=== PATIENT | female | born 1970 | race Caucasian/White ===

== ENCOUNTER 2021-01-03 07:41 | Outpatient (REF) | payer OTHER, SELFPAY | END 2021-01-03 07:42 | disposition home or self-care (01) | LOC: HO.LAB 07:41 | PROVIDERS: Visit Provider Internal Medicine | DX: Z20.822 Contact with and (suspected) exposure to COVID-19 (principal) | CPT/HCPCS: C9803; U0003; U0005 ==

== ENCOUNTER 2021-03-27 09:56 | Emergency (ER) | payer OTHER, SELFPAY ==
--- NOTE | ~2021-03-27 | XR_ITS ---
EXAMINATION: 1. Radiographs left shoulder 2. Radiographs left hand/wrist CLINICAL INFORMATION: Pain COMPARISON: Left shoulder x-ray October 01, 2017 and left hand/wrist x-ray May 08, 2014 TECHNIQUE: 3 views of the left shoulder and 4 views of the left hand/wrist were obtained. FINDINGS: Left shoulder: Visualized portion of the proximal left humerus demonstrate no fracture. Humeral head is again noted to be somewhat inferior in relation to the glenoid. The acromioclavicular joint demonstrates mild degenerative changes. Appreciable interval worsening in calcification adjacent to the greater tuberosity. Visualized left-sided ribs and lung parenchyma are unremarkable. Left hand/wrist: Visualized portions of the distal radius and ulna demonstrate no fracture. Similar metallic foreign body within the soft tissues of the distal forearm. Carpal rows are well aligned. No carpal, metacarpal or phalangeal fracture. No significant degenerative changes of the left hand. XR/XR hand wrist LT IMPRESSION: 1. Worsening calcific tendinosis of the left shoulder. 2. Similar appearance of suspected inferior subluxation of the humeral head in relation to the glenoid fossa. Clinical correlation recommended. This may be positional in nature. 3. Unremarkable radiographs of the left hand/wrist.
--- NOTE | ~2021-03-27 | XR_ITS ---
EXAMINATION: 1. Radiographs left shoulder 2. Radiographs left hand/wrist CLINICAL INFORMATION: Pain COMPARISON: Left shoulder x-ray October 01, 2017 and left hand/wrist x-ray May 08, 2014 TECHNIQUE: 3 views of the left shoulder and 4 views of the left hand/wrist were obtained. FINDINGS: Left shoulder: Visualized portion of the proximal left humerus demonstrate no fracture. Humeral head is again noted to be somewhat inferior in relation to the glenoid. The acromioclavicular joint demonstrates mild degenerative changes. Appreciable interval worsening in calcification adjacent to the greater tuberosity. Visualized left-sided ribs and lung parenchyma are unremarkable. Left hand/wrist: Visualized portions of the distal radius and ulna demonstrate no fracture. Similar metallic foreign body within the soft tissues of the distal forearm. Carpal rows are well aligned. No carpal, metacarpal or phalangeal fracture. No significant degenerative changes of the left hand. XR/XR shoulder LT min 2V IMPRESSION: 1. Worsening calcific tendinosis of the left shoulder. 2. Similar appearance of suspected inferior subluxation of the humeral head in relation to the glenoid fossa. Clinical correlation recommended. This may be positional in nature. 3. Unremarkable radiographs of the left hand/wrist.
--- NOTE | ~2021-03-27 | XR_ITS ---
EXAMINATION: XR knee LT 4V CLINICAL INFORMATION: Reason for Exam LEFT knee pain COMPARISON: None available at the time of this dictation. TECHNIQUE: frontal, lateral, tunnel views FINDINGS: BONES: No fracture or dislocation is present. JOINTS: Narrowing of joint spaces and developed osteophytes from the edges of articular surfaces suggest degenerative osteoarthritis. SOFT TISSUE: Normal XR/XR knee LT 4V IMPRESSION: Mild DJD especially medial compartments. No joint effusion.
--- NOTE | ~2021-03-27 | US_ITS ---
EXAMINATION: US VENOUS WITH DOPPLER UPPER EXTREMITY, LEFT CLINICAL INFORMATION: Pain COMPARISON: None TECHNIQUE: Ultrasound of the upper extremity is performed using compression sonography and color and pulse Doppler flow with assessment of augmentation of flow. There is also imaging and Doppler assessment of the jugular and subclavian veins. Spectral analysis with color-flow imaging is performed. FINDINGS: Respiratory variation, normal compression, and augmented flow are noted throughout the upper extremity including the axillary, brachial, cubital, and radial and ulnar veins. There is normal flow in the internal jugular and subclavian veins. There is no visible deep or superficial thrombophlebitis. If the patient's symptoms progress, a followup ultrasound in 5 -7 days might be of value to exclude proximal propagation from a nonvisualized distal arm vein. US/US venous duplex UE LT IMPRESSION: No DVT demonstrated in the left upper extremity.
[2021-03-27 11:03] VITALS: BP 129/78; PULSE 66; RESP 16; O2SAT 100; BMI 38.7
--- NOTE | 2021-03-27 11:52 | ED.EXTPRO ---
HPI - Extremity Problem General Chief complaint: Extremity Problem Stated complaint: Extremity Pain Time Seen by Provider: 03/27/21 11:06 Source: patient Mode of arrival: ambulatory Limitations: no limitations History of Present Illness HPI Narrative: Patient presents to ED for left hand pain radiating up to her shoulder since yesterday. Patient states pain when moving fingers. Patient denies any weakness in extremity, any slurred speech, loss of vision, paralysis of any extremities or facial droop. Patient denies any swelling of hand redness. Patient denies any recent trauma chest pain or shortness of breath. Patient's 2nd complaint is left knee pain for the past 3 weeks. Related Data Previous Rx's Medication Instructions Recorded ketorolac 10 mg tablet 10 mg PO QID PRN 5 Days #20 tab 03/27/21 prednisone 20 mg tablet 60 mg PO DAILY 5 Days #15 tab 03/27/21 Allergies Allergy/AdvReac Type Severity Reaction Status Date / Time hydromorphone [From DILAUDID] Allergy Severe DIFFICULTY Unverified 05/06/20 15:09 BREATHING Review of Systems Review of Systems: Yes all other systems are reviewed and are negative Constitutional: Constitutional: Reports as per HPI and Reports no additional constitutional complaints Eyes: Eyes: Reports as per HPI and Reports no additional eye complaints ENT: Reports system reviewed and no additional complaints, except as documented and Reports as per HPI Cardiovascular: Cardiovascular: Reports as per HPI and Reports no additional cardiovascular complaints Respiratory: Respiratory: Reports as per HPI and Reports no additional respiratory complaints Gastrointestinal: Gastrointestinal: Reports as per HPI and Reports no additional gastrointestinal complaints Genitourinary: Genitourinary: Reports no additional female genitourinary complaints and Reports as per HPI Musculoskeletal: Musculoskeletal: Reports no additional musculoskeletal complaints and Reports as per HPI Comments: Left hand pain and left knee pain. Neurologic: Reports system reviewed and no additional complaints, except as documented and Reports as per HPI Psychiatric: Psychiatric: Reports no additional psychiatric complaints and Reports as per HPI [facility] Social History Social History Advance Directives: No Advance Directives Information Provided: No Physical Exam Vital Signs: Vital Signs: Last Vital Signs Pulse 62 03/27/21 14:43 Resp 20 03/27/21 14:43 BP 127/71 03/27/21 14:43 Pulse Ox 100 03/27/21 14:43 Body Mass Index 38.7 Const: General: cooperative, healthy appearing, comfortable, no acute distress, well developed, alert, awake and Physically active Orientation/consciousness: patient oriented x3 HENMT: Head: Yes normal to inspection, Yes No palpable skull fracture present, Yes normocephalic, Yes atraumatic and No abrasion Eyes: General: appearance normal, both eyes and all related structures Neck: Neck: Yes normal visual inspection, Yes full ROM, Yes no lymphadenopathy, Yes no meningeal signs, Yes trachea midline and No tender Chest: Chest palpation & inspection: normal inspection of the chest and normal palpation of entire chest wall Resp: Effort & Inspection: normal respiratory effort and able to speak in complete sentences Auscultation: clear to auscultation bilaterally Cardio: Jugular venous distension: no JVD Heart sounds: S1 normal heart sound present and S2 normal heart sound present GI: Inspection: Yes normal to inspection and No abdominal wall ecchymosis Palpation (GI): Soft to palpation, not firm, nontender and no guarding : General: No CVA tenderness and Yes no CVA tenderness Back/Spine/Pelvis: Back: no CVA tenderness, No CVA tenderness and No back tenderness Skin: General skin exam: no rashes or lesions noted and elasticity normal Neuro: Other: Negative for facial droop. Negative slurred speech. Negative negative pronator drift. General: patient oriented x3, gait normal, no meningeal signs and CN's II-XI intact bilaterally Cranial nerves: Yes CN's II-XII intact bilaterally Extrem: Hand/finger images: 1. All fingers painful on range of motion. Tenderness on palpation. Negative for any redness, swelling, pus discharge, foul odor, or deformity. Vascular neuro exam is intact. Motor exam limited due to pain. Negative ecchymosis. Knee images: 1. Positive for bone tenderness. Negative for erythema, redness, swelling, or stiffness. Motor/neuro/vascular exam is intact. Psych: Appearance: grossly normal, well kempt and not disheveled Course Course Course Narrative: Due to age will do EKG and at least 1 troponin. Sent for x-rays of hand and shoulder. Negative for any obvious deformity. Negative for any warmth to indicates cellulitis. Negative for coldness to indicate arterial occlusion. Reevaluation(s) Reevaluation #1: EKG negative STEMI. Shoulder x-ray positive for tendinitis. Knee x-rays positive for osteoarthritis. Hand x-ray came back normal. Waiting for troponin CPK per was sent for ultrasound to rule out DVT. Time: 12:14 Reevaluation #2: Patient's ultrasound negative for DVT. Patient is presently having referred pain from shoulder to tendinitis. Will be discharged with Toradol and steroids. After patient received Toradol IM nursing patient started moving her hand left upper extremity. Time: 14:26 MDM - Extremity (Nontraumatic) MDM Narrative Medical decision making narrative: Calcific tendinitis Lab Data Result diagrams: 03/27/21 11:48 03/27/21 11:48 Labs: Lab Results 03/27/21 03/27/21 03/27/21 Range/Units 11:48 11:48 11:48 WBC 6.2 (4.8-10.8) X10*3/uL RBC 4.49 (4.20-5.50) X10*6/uL Hgb 12.4 (12.0-16.0) g/dl Hct 38.4 (37-47) % MCV 85.5 (80-98) fL MCH 27.6 (27.0-33.0) pg MCHC 32.3 (31.0-35.0) g/dl RDW 13.4 (11.0-16.0) % Plt Count 257 (160-400) X10*3/uL MPV 10.6 (9.4-12.3) fL Immature Gran % (Auto) 0.2 (0.0-0.4) % Neut % (Auto) 60.5 (45-73) % Lymph % (Auto) 28.4 (20-40) % [place] % (Auto) 7.4 (2-11) % Eos % (Auto) 2.9 (0-4) % Baso % (Auto) 0.6 (0-2) % Lymph # (Auto) 1.8 (1.2-4.9) X10*3/uL [place] # (Auto) 0.5 (0.1-1.2) X10*3/uL Eos # (Auto) 0.2 (0.0-0.4) X10*3/uL Baso # (Auto) 0.0 (0.0-0.2) X10*3/uL Abs Immat Gran (auto) 0.01 (0.00-0.03) X10*3/uL Absolute Neuts (auto) 3.7 (2.0-8.3) X10*3/uL Absolute Nucleated RBC 0.000 (0.0-0.012) X10*3/uL Nucleated RBC % (auto) 0.0 (0.0-0.2) /100WBC PT (9.9-13.0) SEC INR (0.9-1.1) APTT (24.1-38.0) SEC Sodium 140 (135-145) mmol/L Potassium 4.2 (3.3-5.1) mmol/L Chloride 108 (96-108) mmol/L Carbon Dioxide 25 (22-29) mmol/L Anion Gap 11 L (12-20) BUN 9 (9-16) mg/dL Creatinine 0.69 (0.5-1.4) mg/dL Estim Creat Clear Calc 120.4 Estimated GFR > 60 Random Glucose 87 (60-115) mg/dL Calcium 8.7 (8.4-10.2) mg/dL Total Bilirubin 0.6 (0.0-1.0) mg/dL AST 12 (5-31) U/L ALT 10 (0-31) U/L Alkaline Phosphatase 49 (39-117) U/L Total Creatine Kinase (26-140) U/L Troponin I High Sens < 3.5 (<3.5-17.0) ng/L Total Protein 6.9 (6.5-8.0) g/dL Albumin 3.9 (3.5-5.0) g/dL 03/27/21 03/27/21 Range/Units 11:48 11:48 WBC (4.8-10.8) X10*3/uL RBC (4.20-5.50) X10*6/uL Hgb (12.0-16.0) g/dl Hct (37-47) % MCV (80-98) fL MCH (27.0-33.0) pg MCHC (31.0-35.0) g/dl RDW (11.0-16.0) % Plt Count (160-400) X10*3/uL MPV (9.4-12.3) fL Immature Gran % (Auto) (0.0-0.4) % Neut % (Auto) (45-73) % Lymph % (Auto) (20-40) % [place] % (Auto) (2-11) % Eos % (Auto) (0-4) % Baso % (Auto) (0-2) % Lymph # (Auto) (1.2-4.9) X10*3/uL [place] # (Auto) (0.1-1.2) X10*3/uL Eos # (Auto) (0.0-0.4) X10*3/uL Baso # (Auto) (0.0-0.2) X10*3/uL Abs Immat Gran (auto) (0.00-0.03) X10*3/uL Absolute Neuts (auto) (2.0-8.3) X10*3/uL Absolute Nucleated RBC (0.0-0.012) X10*3/uL Nucleated RBC % (auto) (0.0-0.2) /100WBC PT 11.3 (9.9-13.0) SEC INR 1.0 (0.9-1.1) APTT 34.3 (24.1-38.0) SEC Sodium (135-145) mmol/L Potassium (3.3-5.1) mmol/L Chloride (96-108) mmol/L Carbon Dioxide (22-29) mmol/L Anion Gap (12-20) BUN (9-16) mg/dL Creatinine (0.5-1.4) mg/dL Estim Creat Clear Calc Estimated GFR Random Glucose (60-115) mg/dL Calcium (8.4-10.2) mg/dL Total Bilirubin (0.0-1.0) mg/dL AST (5-31) U/L ALT (0-31) U/L Alkaline Phosphatase (39-117) U/L Total Creatine Kinase 77 (26-140) U/L Troponin I High Sens (<3.5-17.0) ng/L Total Protein (6.5-8.0) g/dL Albumin (3.5-5.0) g/dL Discharge Plan Discharge Clinical Impression: Calcific shoulder tendinitis Patient Disposition: Home, Self-Care Instructions: Calcific Tendinitis (ED) Additional Instructions: Shoulder shows calcific tendinitis on x-ray. EKG and blood work troponin came back negative for heart attack. Left hand x-ray came back normal. Left upper extremity ultrasound negative for blood clot. You will be discharged with pain medication steroids please follow-up with your PCP Prescriptions: New ketorolac 10 mg tablet 10 mg PO QID PRN (Reason: pain) 5 Days Qty: 20 RF: 0 prednisone 20 mg tablet 60 mg PO DAILY 5 Days Qty: 15 RF: 0 Interventions: ED Discharge Assessment Last Done: 03/27/21 14:46 Discharge Date/Time: 03/27/21 14:47 Print Language: Azeri
[2021-03-27 11:53] LABS: MANUAL DIFF FLAG NO
[2021-03-27 11:55] LABS: Basophils Percent Auto 0.6 % (0-2); Eosinophils Absolute Auto 0.2 X10*3/uL (0.0-0.4); Eosinophils Percent Auto 2.9 % (0-4); Hematocrit 38.4 % (37-47); Hemoglobin 12.4 g/dl (12.0-16.0); Imm Gran Abs Auto 0.01 X10*3/uL (0.00-0.03); Imm Gran Pct Auto 0.2 % (0.0-0.4); Lymphocytes Absolute Auto 1.8 X10*3/uL (1.2-4.9); Lymphocytes Percent Auto 28.4 % (20-40); Mean Corpuscular HGB Conc 32.3 g/dl (31.0-35.0); Mean Corpuscular Hemoglobin 27.6 pg (27.0-33.0); Mean Corpuscular Volume 85.5 fL (80-98); Mean Platelet Volume 10.6 fL (9.4-12.3); Monocytes Absolute Auto 0.5 X10*3/uL (0.1-1.2); Monocytes Percent Auto 7.4 % (2-11); Neutrophils Absolute Auto 3.7 X10*3/uL (2.0-8.3); Neutrophils Percent Auto 60.5 % (45-73); Platelet Count 257 X10*3/uL (160-400); Red Blood Count 4.49 X10*6/uL (4.20-5.50); Red Cell Distribution Width 13.4 % (11.0-16.0); White Blood Count 6.2 X10*3/uL (4.8-10.8)
[2021-03-27 12:10] LABS: Prothrombin Time 11.3 SEC (9.9-13.0)
[2021-03-27 12:13] LABS: Partial Thromboplastin Time 34.3 SEC (24.1-38.0)
[2021-03-27 12:25] LABS: Alanine Aminotransferase 10 U/L (0-31); Albumin Level 3.9 g/dL (3.5-5.0); Alkaline Phosphatase 49 U/L (39-117); Anion Gap 11 (12-20); Aspartate Amino Transferase 12 U/L (5-31); Bilirubin Total 0.6 mg/dL (0.0-1.0); Blood Urea Nitrogen 9 mg/dL (9-16); Calcium 8.7 mg/dL (8.4-10.2); Carbon Dioxide 25 mmol/L (22-29); Chloride 108 mmol/L (96-108); Creatinine Clr Calc Pharmacy 120.4; Estimated Glomerular Filt Rate > 60; Glucose Random 87 mg/dL (60-115); Potassium 4.2 mmol/L (3.3-5.1); Sodium 140 mmol/L (135-145); Total Protein 6.9 g/dL (6.5-8.0)
[2021-03-27 12:29] LABS: Troponin-I High Sensitivity < 3.5 ng/L (<3.5-17.0)
[2021-03-27] MEDS: Ketorolac Tromethamine 15 MG/ML VIAL 30 MG IM (12:50)
[2021-03-27 14:43] VITALS: BP 127/71; PULSE 62; RESP 20; O2SAT 100
== END 2021-03-27 14:47 | disposition home or self-care (01) ==
PROVIDERS: Physician Assistant; Emergency Provider Emergency Medicine Emergency Medical Services
DX: M75.32 Calcific tendinitis of left shoulder (principal); M17.12 Unilateral primary osteoarthritis, left knee; M25.562 Pain in left knee; M79.642 Pain in left hand
CPT/HCPCS: 36415; 73030; 73110; 73130; 73564; 80053; 82550; 84484; 85025; 85610; 85730; 93971; 96372; 99284; J1885

== ENCOUNTER 2021-04-13 12:05 | Outpatient (REF) | payer OTHER, SELFPAY ==
--- NOTE | ~2021-04-13 | XR_ITS ---
EXAMINATION: XR KNEE, LEFT CLINICAL INFORMATION: Left knee sprain. COMPARISON: Left knee radiographs dated 03/27/2021. TECHNIQUE: Four views of the left knee. FINDINGS: [id number] medial compartment joint space narrowing with marginal osteophytes. Tiny lateral and patellofemoral compartment marginal osteophytes. No osseous erosion. No fracture or dislocation. No significant joint effusion. No abnormal soft tissue calcification. XR/XR knee LT 4V IMPRESSION: [id number] medial as well as mild patellofemoral and lateral compartment osteoarthritis, unchanged.
== END 2021-04-13 12:06 | disposition home or self-care (01) ==
LOC: HO.HMGCX 12:05
PROVIDERS: Visit Provider Internal Medicine
DX: Z13.89 Encounter for screening for other disorder (principal)
CPT/HCPCS: 73564

== ENCOUNTER 2021-04-28 08:30 | Emergency (ER) | payer OTHER, SELFPAY ==
--- NOTE | ~2021-04-28 | XR_ITS ---
EXAMINATION: XR ELBOW, LEFT CLINICAL INFORMATION: Left elbow pain. COMPARISON: Left humerus 10/03/2017. TECHNIQUE: AP, lateral, and oblique views of the left elbow. FINDINGS: There is a soft tissue calcification lateral to the lateral epicondyle with a calcification measuring approximately 6 mm. Findings suggestive of calcific epicondylitis. No acute fracture or subluxation. No abnormal joint effusion. No loose body seen. XR/XR elbow LT min 3V IMPRESSION: Soft tissue calcification lateral to the lateral epicondyle most suggestive of calcific epicondylitis. Less likely differential diagnosis old avulsion injury.
[2021-04-28 08:46] VITALS: BP 114/82; PULSE 92; RESP 19; TEMP 36.4; O2SAT 98; BMI 39.2
--- NOTE | 2021-04-28 09:03 | ED_ITS ---
HPI - Extremity Problem General Chief complaint: Extremity Injury, Upper Stated complaint: L ARM PAIN Time Seen by Provider: 04/28/21 08:56 Source: patient Mode of arrival: ambulatory Limitations: no limitations History of Present Illness HPI Narrative: Patient comes emergency room complaining of left elbow pain. P atient states this started about 2-3 days ago, gradually getting worse. Patient denies fever chills, no swelling in the elbow. Patient states she has had this pain before, the pain self-resolved. Patient states she has no joint pain at the shoulder or the elbow, patient able to close and open all fingers in the hand but states when she does still hurts her elbow. Patient took gabapentin that she borrowed from her boyfriend, took [id number] pain medications, no relief. Patient denies loss of strength or numbness and tingling Related Data Previous Rx's Medication Instructions Recorded ketorolac 10 mg tablet 10 mg PO QID PRN 5 Days #20 tab 03/27/21 prednisone 20 mg tablet 60 mg PO DAILY 5 Days #15 tab 03/27/21 meloxicam 15 mg tablet 15 mg PO DAILY #14 tab 04/13/21 meloxicam 7.5 mg tablet 7.5 mg PO DAILY PRN #7 tab 04/28/21 Allergies Allergy/AdvReac Type Severity Reaction Status Date / Time hydromorphone [From DILAUDID] Allergy Severe DIFFICULTY Verified 04/28/21 08:48 BREATHING Review of Systems Review of Systems: Constitutional : No Weight loss, No Fever, No Chills, No Night Sweats, No Fatigue, No Malaise ENT/Mouth : No Hearing loss, No Ear Pain, No Nasal Congestion, No Sinus Pain, No Hoarseness, No sore throat, No Rhinorrhea, No Swallowing Difficulty Eyes: No Eye Pain, No Swelling, No Redness, No Foreign Body, No Discharge, No Vision Changes Cardiovascular : No Chest Pain, No SOB, No Dyspnea on Exertion, No Orthopnea, No Edema, No Palpitations Respiratory : No Cough, No Sputum, No Wheezing, No Smoke Exposure, No Dyspnea Gastrointestinal : No Nausea, No Vomiting, No Diarrhea, No Constipation, No abdominal Pain, No Hematochezia, No Melena Genitourinary : no irregular bleeding, No Dysuria, No Urinary Frequency, No Hematuria, No Urinary Incontinence, No Urgency, No Flank Pain, No Urinary Flow Changes, No Hesitancy Musculoskeletal : Left elbow pain, No Myalgias, No Joint Swelling Skin : No Skin Lesions, No rash Neuro : No Weakness, No Numbness, No Paresthesias, No Loss of Consciousness, No Dizziness, No Headache Psych : No Anxiety/Panic, No Depression, No SI/HI/AH/VH, No Social Issues, Heme/Lymph: No Bruising, No Bleeding,No Lymphadenopathy Endocrine : No Polyuria, No Polydipsia, No Temperature Intolerance [facility] Past Medical History Medical History No known health problems Social History Social History Advance Directives: Yes Advance Directives Information Provided: No Advance Directives on File: No Patient : No Physical Exam Vital Signs: Vital Signs: Last Vital Signs Temp 97.5 F 04/28/21 08:46 Pulse 92 04/28/21 08:46 Resp 19 04/28/21 08:46 BP 114/82 04/28/21 08:46 Pulse Ox 98 04/28/21 08:46 Body Mass Index 39.2 Const: Other: Appearance: Alert. Oriented X3. No acute distress. Eyes: Pupils equal, round and reactive to light. ENT: Pharynx normal. Neck: Normal inspection. Neck supple. No lymph nodes noted. No crepitus CVS: Normal heart rate and rhythm. Pulses normal. Normal S1 and S2 Respiratory: No respiratory distress. Breath sounds normal. No Wheezing. No rales Abdomen: Soft and nontender. No rigidity. No distention. good BS x4 Skin: Skin warm and dry. Normal skin color. Normal skin turgor. Extremities: No lower extremity edema. The left elbow has no erythema, no redness, patient is able to flex and extend the elbow but with pain, patient able to close and open the hand, able to abduct the shoulder Neuro: Oriented X 3. No motor deficit. No sensory deficit. Moving all extermities. No slurred speech. Course Course Course Narrative: I discussed the x-ray and the labs with the patient, the CRP was slightly elevated, ESR within normal limits, white blood cell count within normal limits. Physical exam and labs do not suggest the patient has a septic joint. 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, patient may benefit from a referral from the PCP to orthopedics or sports medicine for possible percutaneous ultrasound-guided tenotomy or physical therapy MDM - Extremity (Nontraumatic) Lab Data Result diagrams: 04/28/21 09:19 04/28/21 09:19 Labs: Lab Results 04/28/21 04/28/21 04/28/21 Range/Units 09:19 09:19 09:19 WBC 5.2 (4.8-10.8) X10*3/uL RBC 4.23 (4.20-5.50) X10*6/uL Hgb 11.7 L (12.0-16.0) g/dl Hct 36.8 L (37-47) % MCV 87.0 (80-98) fL MCH 27.7 (27.0-33.0) pg MCHC 31.8 (31.0-35.0) g/dl RDW 13.3 (11.0-16.0) % Plt Count 236 (160-400) X10*3/uL MPV 10.0 (9.4-12.3) fL Immature Gran % (Auto) 0.4 (0.0-0.4) % Neut % (Auto) 64.4 (45-73) % Lymph % (Auto) 24.0 (20-40) % [place] % (Auto) 7.1 (2-11) % Eos % (Auto) 3.5 (0-4) % Baso % (Auto) 0.6 (0-2) % Lymph # (Auto) 1.3 (1.2-4.9) X10*3/uL [place] # (Auto) 0.4 (0.1-1.2) X10*3/uL Eos # (Auto) 0.2 (0.0-0.4) X10*3/uL Baso # (Auto) 0.0 (0.0-0.2) X10*3/uL Abs Immat Gran (auto) 0.02 (0.00-0.03) X10*3/uL Absolute Neuts (auto) 3.4 (2.0-8.3) X10*3/uL Absolute Nucleated RBC 0.000 (0.0-0.012) X10*3/uL Nucleated RBC % (auto) 0.0 (0.0-0.2) /100WBC ESR 18 (0-20) MM/HR Sodium 140 (135-145) mmol/L Potassium 4.1 (3.3-5.1) mmol/L Chloride 109 H (96-108) mmol/L Carbon Dioxide 25 (22-29) mmol/L Anion Gap 10 L (12-20) BUN 11 (9-16) mg/dL Creatinine 0.66 (0.5-1.4) mg/dL Estim Creat Clear Calc 126.8 Estimated GFR > 60 Random Glucose 82 (60-115) mg/dL Calcium 8.6 (8.4-10.2) mg/dL C-Reactive Protein 0.88 H (< or = 0.50) mg/dL Imaging Data Elbow x-ray: Radiologist's impression: There is a soft tissue calcification lateral to the lateral epicondyle with a calcification measuring approximately 6 mm. Findings suggestive of calcific epicondylitis. No acute fracture or subluxation. No abnormal joint effusion. No loose body seen. XR/XR elbow LT min 3V IMPRESSION: Soft tissue calcification lateral to the lateral epicondyle most suggestive of calcific epicondylitis. Less likely differential diagnosis old avulsion injury. Discharge Plan Discharge Clinical Impression: Epicondylitis Patient Disposition: Home, Self-Care Instructions: Arthralgia (ED) Additional Instructions: Please follow-up with your primary care physician tomorrow. If you have any worsening or new symptoms, please return to the emergency room or call 911 Prescriptions: New meloxicam 7.5 mg tablet 7.5 mg PO DAILY PRN (Reason: pain) Qty: 7 RF: 0 No Action ketorolac 10 mg tablet 10 mg PO QID PRN (Reason: pain) 5 Days Qty: 20 RF: 0 prednisone 20 mg tablet 60 mg PO DAILY 5 Days Qty: 15 RF: 0 meloxicam 15 mg tablet 15 mg PO DAILY Qty: 14 RF: 0 Stand Alone Forms: Work/School Release
[2021-04-28] MEDS: traMADoL HCL 50 MG TABLET PO (09:13)
[2021-04-28 09:24] LABS: Basophils Percent Auto 0.6 % (0-2); Eosinophils Absolute Auto 0.2 X10*3/uL (0.0-0.4); Eosinophils Percent Auto 3.5 % (0-4); Hematocrit 36.8 % (37-47); Hemoglobin 11.7 g/dl (12.0-16.0); Imm Gran Abs Auto 0.02 X10*3/uL (0.00-0.03); Imm Gran Pct Auto 0.4 % (0.0-0.4); Lymphocytes Absolute Auto 1.3 X10*3/uL (1.2-4.9); MANUAL DIFF FLAG NO; Mean Corpuscular HGB Conc 31.8 g/dl (31.0-35.0); Mean Corpuscular Hemoglobin 27.7 pg (27.0-33.0); Monocytes Absolute Auto 0.4 X10*3/uL (0.1-1.2); Monocytes Percent Auto 7.1 % (2-11); Neutrophils Absolute Auto 3.4 X10*3/uL (2.0-8.3); Neutrophils Percent Auto 64.4 % (45-73); Platelet Count 236 X10*3/uL (160-400); Red Blood Count 4.23 X10*6/uL (4.20-5.50); Red Cell Distribution Width 13.3 % (11.0-16.0); White Blood Count 5.2 X10*3/uL (4.8-10.8)
[2021-04-28 09:45] LABS: Anion Gap 10 (12-20); Blood Urea Nitrogen 11 mg/dL (9-16); C Reactive Protein 0.88 mg/dL (< or = 0.50); Calcium 8.6 mg/dL (8.4-10.2); Carbon Dioxide 25 mmol/L (22-29); Chloride 109 mmol/L (96-108); Creatinine Clr Calc Pharmacy 126.8; Estimated Glomerular Filt Rate > 60; Glucose Random 82 mg/dL (60-115); Potassium 4.1 mmol/L (3.3-5.1); Sodium 140 mmol/L (135-145)
[2021-04-28 10:10] LABS: Erythrocyte Sedimentation Rate 18 MM/HR (0-20)
[2021-04-28 10:25] VITALS: RESP 19
== END 2021-04-28 10:28 | disposition home or self-care (01) ==
PROVIDERS: Emergency Provider Emergency Medicine
DX: M77.12 Lateral epicondylitis, left elbow (principal); M79.602 Pain in left arm
CPT/HCPCS: 36415; 73080; 80048; 85025; 85652; 86140; 99283

== ENCOUNTER 2022-01-28 06:36 | Outpatient (REF) | payer OTHER, SELFPAY ==
[2022-01-28 11:27] LABS: MANUAL DIFF FLAG NO
[2022-01-28 11:48] LABS: Basophils Percent Auto 0.6 % (0-2); Eosinophils Absolute Auto 0.2 X10*3/uL (0.0-0.4); Hematocrit 36.7 % (37.0-47.0); Hemoglobin 11.6 g/dl (12.0-16.0); Imm Gran Abs Auto 0.01 X10*3/uL (0.00-0.03); Imm Gran Pct Auto 0.2 % (0.0-0.4); Lymphocytes Absolute Auto 1.4 X10*3/uL (1.2-4.9); Lymphocytes Percent Auto 26.7 % (20-40); Mean Corpuscular HGB Conc 31.6 g/dl (31.0-35.0); Mean Corpuscular Hemoglobin 27.7 pg (27.0-33.0); Mean Corpuscular Volume 87.6 fL (80.0-98.0); Mean Platelet Volume 10.9 fL (9.4-12.3); Monocytes Absolute Auto 0.4 X10*3/uL (0.1-1.2); Monocytes Percent Auto 7.7 % (2-11); Neutrophils Absolute Auto 3.2 x10*3/uL (2.0-8.3); Neutrophils Percent Auto 60.8 % (45-73); Platelet Count 247 X10*3/uL (160-400); Red Blood Count 4.19 X10*6/uL (4.20-5.50); Red Cell Distribution Width 13.4 % (11.0-16.0); White Blood Count 5.2 X10*3/uL (4.8-10.8)
[2022-01-28 12:04] LABS: Alanine Aminotransferase 7 U/L (0-31); Albumin Level 3.7 g/dL (3.5-5.0); Alkaline Phosphatase 49 U/L (39-117); Anion Gap 10 (12-20); Aspartate Amino Transferase 12 U/L (5-31); Bilirubin Total 0.7 mg/dL (0.0-1.0); Blood Urea Nitrogen 12 mg/dL (9-16); Calcium 8.6 mg/dL (8.4-10.2); Carbon Dioxide 27 mmol/L (22-29); Chloride 106 mmol/L (96-108); Cholesterol 220 mg/dL; Estimated Glomerular Filt Rate > 60; Glucose Fasting 99 mg/dL (60-99); HDL Cholesterol 53 mg/dL; Iron 53 mcg/dL (30-160); LDL Cholesterol Calculated 157 mg/dl; Percent Iron Saturation 15 % (15-50); Potassium 4.1 mmol/L (3.3-5.1); Sodium 139 mmol/L (135-145); Total Iron Binding Capacity 344 mcg/dL (228-428); Total Protein 6.5 g/dL (6.5-8.0); Triglycerides 52 mg/dL; Unsaturated Iron Binding 291 ug/dL
[2022-01-28 12:12] LABS: Appearance Urine CLOUDY; Color Urine RED; Glucose Urine UA NEG (NEG); Leukocyte Esterase Urine TRACE (NEG); Nitrite Urine NEG (NEG); UACC Culture Trigger NO; Urine Blood 3+ (NEG); Urine Ketones 5 MG/DL (NEG); Urine Protein 1+ MG/DL (NEG-TRACE)
[2022-01-28 12:13] LABS: Ferritin 20 ng/mL (10-250); TSH reflex Free T4 2.07 uIU/mL (0.32-4.0)
[2022-01-28 12:49] LABS: RBC Urine TNTC /HPF (0); Squamous Epithelial Cell Urine 2+ /LPF; WBC Urine 0 /HPF (0-4)
[2022-01-30 09:14] LABS: Vitamin B12 352 pg/mL (200-900)
[2022-01-30 19:01] LABS: Lyme Abs Screen <0.90 index
== END 2022-01-28 06:37 | disposition home or self-care (01) ==
LOC: HO.HMGCLDS 06:36
PROVIDERS: PCP Nurse Practitioner Family; Visit Provider Nurse Practitioner Family
DX: R53.83 Other fatigue (principal)
CPT/HCPCS: 36415; 80053; 80061; 81001; 81003; 82607; 82728; 82746; 83540; 84443; 85025; 86617; 86618

== ENCOUNTER 2022-02-17 10:39 | Outpatient (REF) | payer OTHER, SELFPAY ==
[2022-02-17 13:47] LABS: Urine Cytology See Pathology rpt
[2022-02-17 13:50] LABS: Appearance Urine HAZY; Color Urine YELLOW; Glucose Urine UA NEG (NEG); Leukocyte Esterase Urine NEG (NEG); Nitrite Urine NEG (NEG); Urine Blood NEG (NEG); Urine Ketones NEG (NEG); Urine Protein NEG (NEG-TRACE)
[2022-02-17 14:08] LABS: Bacteria Urine 3+ /LPF; Squamous Epithelial Cell Urine 3+ /LPF
[2022-02-17 14:09] LABS: RBC Urine 0 /HPF (0); WBC Urine 0-2 /HPF (0-4)
== END 2022-02-17 10:40 | disposition home or self-care (01) ==
LOC: HO.HMGCLDS 10:39
PROVIDERS: PCP Nurse Practitioner Family; Visit Provider Nurse Practitioner Family
DX: R31.29 Other microscopic hematuria (principal)
CPT/HCPCS: 81001; 87086; 87147; 88112

== ENCOUNTER 2023-03-12 13:58 | Outpatient (AMB) | payer OTHER, SELFPAY ==
--- NOTE | 2023-03-12 14:57 | AM.OFFWIN_ITS ---
Intake Vital Signs 03/12/23 15:02 Height 5 ft 6 in BP 122/86 Blood Pressure Location Lt brachial Position Sitting Pulse 76 Pulse Source Pulse Oximeter Temp 97.9 F Temp Source Oral Pulse Oximetry (%) 98 Oxygen Delivery Method Room Air Intake Visit Reasons: EP, Right Arm Pain Intake Note: Pt is here today for Rt arm pain, started a wk ago from elbow. feels pain from neck down to rt side of body. Patient Tobacco Use Status: Never used Tobacco Allergies hydromorphone [From DILAUDID] Allergy (Severe, Verified 03/12/23 14:57) DIFFICULTY BREATHING HPI HPI Comments History of Present Illness Details 53-year-old female presents for right elbow pain and difficulty moving. She was evaluated on 04/28/2021 and has a history of epicondylitis, and calcific tendinitis. She states the pain feels similar to prior presentations. [facility] Medical History No known health problems Osteoarthritis of left knee Social History Housing: Apartment Patient Tobacco Use Status: Never used Tobacco e-Cigarette/Vaping Use: Never Used Second Hand Smoke Exposure: No service: No Current occupational status: employed Current occupation: [employer] Current occupational exposures/hazards: Yes Cognitive needs: No Hearing needs: No Vision needs: No Review of Systems Const Details: Constitutional: No Fever, No Chills Cardiovascular: No Chest Pain, No SOB Respiratory: No Cough, No Dyspnea Musculoskeletal: positive right elbow pain, No Myalgias, No Joint Swelling Skin: No Skin lacerations, No rash Neuro: No Weakness, No Dizziness, No Headache All systems reviewed & are unremarkable except as noted in HPI and below Physical Exam Vital Signs: Last Vital Signs Temp 97.9 F 03/12/23 15:02 Pulse 76 03/12/23 15:02 BP 122/86 03/12/23 15:02 Pulse Ox 98 03/12/23 15:02 Oxygen Delivery Method Room Air 03/12/23 15:02 Appearance: Alert. Oriented X3. No acute distress. Eyes: Pupils equal, round and reactive to light. Neck: Normal inspection. Neck supple. CVS: Normal heart rate and rhythm. Pulses normal. Respiratory: No respiratory distress. Breath sounds normal. Skin: Skin warm and dry. Normal skin color. Normal skin turgor. Extremities: Right elbow tenderness with flexion and extension, point tenderness to the olecranon. X-rays indicate epicondylitis Neuro: No motor deficit. No sensory deficit. Cranial nerves 2-12 intact Assessment & Plan Assessment & Plan (1) Elbow pain, right: Code(s): M25.521 - Pain in right elbow Plan 53-year-old female presents with right elbow pain that is preventing her from full range of motion. She does have a history of epicondylitis and calcific tendinitis, review of records of old x-rays indicates a 6 mm calcific area of the lateral epicondyle. Will repeat x-rays today however I do have suspicion that this similar presentation. Will treat with prednisone, and [id number] NSAIDs. Patient will be referred to Orthopedics, she did have an orthopedic referral in the past, but never presented for evaluation. Patient does understand that she must follow-up with Orthopedics as she may require further care to alleviate her symptoms. She does not report fevers or chills, and does not have any swelling consistent with abscess. Patient is afebrile, nontoxic, with stable vital signs within normal limits. Low likelihood of infectious etiology Patient verbalized understanding of discharge instructions. Verbalized understandings of signs and symptoms indicating need for emergent intervention. Orders: Orders XR elbow RT min 3V Today M25.521 - Pain in right elbow Referrals Orthopedics Referral M25.521 - Pain in right elbow Medications: New prednisone 20 mg PO DAILY 7 tabs 0RF 7 days Patient Instructions: You were evaluated for right elbow pain. You have epicondylitis, and calcification on x-ray. Follow-up with orthopedics. I have referred you to Rosalina ANGULO. Take prednisone 20 mg daily for the next 7 days. Alternate Tylenol 650 mg every 6 hours and Motrin 600 mg every 6 hours as needed for pain management. Consider taking these medications 3 hours apart so you have pain and fever management every 3 hours. Write down what time you take these medications to prevent accidental overdose. Motrin is the same medication as Advil and ibuprofen. Tylenol is the same medication as acetaminophen. Rest ice and elevate the extremity to help reduce pain and swelling. Thank you for choosing this urgent care for evaluation. Please follow-up with primary care physician as needed. Return to the emergency department for any new, concerning, or worsening symptoms. Coding Level of Care Code Est Pt Level 3 (56367) Diagnoses Elbow pain, right M25.521
[2023-03-12 15:02] VITALS: BP 122/86; PULSE 76; TEMP 36.6; O2SAT 98
== END 2023-03-12 16:26 | disposition home or self-care (01) ==
PROVIDERS: PCP Nurse Practitioner Family; Visit Provider Nurse Practitioner Family
DX: M25.521 Pain in right elbow (principal)
CPT/HCPCS: 99213

== ENCOUNTER 2023-03-12 15:22 | Outpatient (REF) | payer OTHER, SELFPAY ==
--- NOTE | ~2023-03-12 | XR_ITS ---
EXAMINATION: XR ELBOW, RIGHT CLINICAL INFORMATION: Pain. COMPARISON: Radiographs dated 04/28/2021. TECHNIQUE: AP, lateral, and oblique views of the right elbow. FINDINGS: Bony alignment and mineralization are normal. No fracture, dislocation or joint effusion is seen. There are small calcified enthesophytes noted arising from the lateral and medial epicondyles of the humerus and the olecranon process of the ulna. There is no bone erosion. No focal soft tissue swelling or foreign body is seen. XR/XR elbow RT min 3V IMPRESSION: There are small enthesophytes, as detailed. No acute fracture, dislocation joint effusion is seen.
== END 2023-03-12 15:23 | disposition home or self-care (01) ==
LOC: HO.HMGCX 15:22
PROVIDERS: PCP Nurse Practitioner Family; Visit Provider Nurse Practitioner Family
DX: M25.521 Pain in right elbow (principal)
CPT/HCPCS: 73080

== ENCOUNTER 2023-03-20 11:14 | Outpatient (AMB) | payer OTHER, SELFPAY ==
--- NOTE | 2023-03-20 11:21 | A.OFFVIS_ITS ---
Intake Intake Visit Reasons: New Pt - right elbow pain Intake Note: Main is a 53 year old right hand dominant female who presents today as a new patient for a evaluation of her right elbow pain. Patient reports off and on pain for 6 years. She states that her visit to the walk in center they prescribed her medication for the pain and it is helping her. Having off and on numbness for about 6 years as well. When she is actively moving her whole arm is in pain. Allergies hydromorphone [From DILAUDID] Allergy (Severe, Verified 03/20/23 11:26) DIFFICULTY BREATHING HPI New Pt - right elbow pain HPI Details 53-year-old female who presents in the office today, as a new patient, for an evaluated of right elbow pain. The patient was seen at the [facility] on 03/12/2023 with pain radiating from her neck down her right upper extremity. The patient reported intermittent pain and numbness for 6 years. She states she has pain with active movement of her entire right upper extermity. Patient has a history of epicondylitis and calcific tendinitis diagnosed on 04/28/2021. [facility] Medical History No known health problems Osteoarthritis of left knee Social History Housing: Apartment Patient Tobacco Use Status: Never used Tobacco e-Cigarette/Vaping Use: Never Used Second Hand Smoke Exposure: No service: No Current occupational status: employed Current occupation: [employer] Current occupational exposures/hazards: Yes Cognitive needs: No Hearing needs: No Vision needs: No Review of Systems Const All systems reviewed & are unremarkable except as noted in HPI and below Physical Exam Const General: cooperative and no acute distress Orientation/consciousness: patient oriented x3 Resp Effort & Inspection: normal respiratory effort and able to speak in complete sentences Cardio Peripheral pulses: Peripheral pulses 2+ throughout Skin General skin exam: no rashes or lesions noted Neuro General: patient oriented x3 Extrem Other: Right elbow: Normal to inspection. No ecchymosis, erythema, or edema. No tenderness to palpation over the olecranon. No tenderness to the medial epicondyle. Tenderness to palpation lateral epicondyle. Office Procedures Joint Injection/Drain Joint Injection/Drain Primary Site: right tennis elbow Prep: site was prepped using aseptic technique, ethochloride spray was applied and injection warnings given Injected: 40 mg of, DepoMedrol, with 1 mL of (2% plain lido ) and other (lateral epicondyle ) Approach Used: other (lateral) Procedure: The patient tolerated the procedure well, but had some pain with the injection and there was some relief with the local anesthesia Coding 75804 - Epicondyle Procedure code (CPT) selection complete Results Reviewed Results Reviewed: 03/20/23 11:29 Lidocaine HCl 1 % [Xylocaine 1 %] 2 ml .ROUTE .STK-MED ONE methylPREDNISolone acetate [DEPO-MedroL] 40 mg .ROUTE .STK-MED ONE Assessment & Plan Assessment & Plan (1) Lateral epicondylitis, right elbow: Code(s): M77.11 - Lateral epicondylitis, right elbow Plan Ms. Menendez is a 53-year-old female who presents in the office today, as a new patient, for an evaluated of right elbow pain. The patient was seen at the Walk- in Clinic on 03/12/2023 with pain radiating from her neck down her right upper extremity. The patient reported intermittent pain and numbness for 6 years. She states she has pain with active movement of her entire right upper extermity. Patient has a history of epicondylitis and calcific tendinitis diagnosed on 04/28/2021. The patient was offered a cortisone injection in the right elbow with 40 mg of DepoMedrol. The patient was explained the risk, benefits, and alternatives to receiving this injection. After receiving consent for the injection, the patient had the procedure done while in office today. The patient tolerated the procedure well with no complications. The patient will be referred to occupational therapy to work on ROM and strengthening of the right elbow. She will obtain a tennis elbow brace on her own. Follow up will be PRN, or sooner if needed. X-rays of the right elbow, obtained on 03/12/2023, revealed: There are small enthesophytes, as detailed. No acute fracture, dislocation joint effusion is seen. Evidence of chronic epicondylitis. Orders: Orders OT Evaluation and Treatment Today M77.11 - Lateral epicondylitis, right elbow Patient Instructions: Scribed for Rosalina Truong PA-C by damari Carranza scribe, on 03/20/2023 at 11:17 am, EST. Your attestation Coding Level of Care Code New Pt Level 3 (43029) Diagnoses Lateral epicondylitis, right elbow M77.11 CPT Codes Coding - Joint 2: 90038 - Epicondyle ([id number])
== END 2023-03-20 11:38 | disposition home or self-care (01) ==
PROVIDERS: PCP Nurse Practitioner Family; Visit Provider Physician Assistant
DX: M77.11 Lateral epicondylitis, right elbow (principal)
CPT/HCPCS: 20550; 99204

== ENCOUNTER → 2023-03-20 11:14 | Outpatient (BNVA) | payer OTHER, SELFPAY | PROVIDERS: PCP Nurse Practitioner Family; Visit Provider Physician Assistant | DX: M77.11 Lateral epicondylitis, right elbow (principal); M17.12 Unilateral primary osteoarthritis, left knee | CPT/HCPCS: J1020 ==

== ENCOUNTER 2023-04-16 08:10 | Outpatient (AMB) | payer OTHER, SELFPAY ==
[2023-04-16 08:40] VITALS: BP 126/70; PULSE 76; TEMP 36.8; BMI 42.4
--- NOTE | 2023-04-16 08:40 | AM.OFFWIN_ITS ---
Intake Vital Signs 04/16/23 08:40 Height 5 ft 6 in Weight 119.295 kg BMI 42.4 BP 126/70 Blood Pressure Location Rt brachial Position Sitting Pulse 76 Pulse Source Palpation Temp 98.3 F Temp Source Oral Intake Visit Reasons: EP, Right leg swelling, pain Intake Note: pt is here for c/o RT foot.leg swelling with pain 2 weeks Patient Tobacco Use Status: Never used Tobacco Allergies hydromorphone [From DILAUDID] Allergy (Severe, Verified 04/16/23 08:41) DIFFICULTY BREATHING Do you need a note to return to daycare/school/sports/work: Yes HPI HPI Comments History of Present Illness Details 0910 53-year-old female history of obesity, osteoarthritis, presenting for sick visit complaining of right foot pain, swelling going on for the past few weeks, worsening. Patient reports her ankle and foot region are swollen and she feels a dull aching sensation in her right calf particularly when walking. Patient just got back from [place] yesterday, patient was on a plane. Patient not on hormone replacement therapy or oral contraceptives, denies smoking history, denies sedentary lifestyle, no history of DVT or PE, no history of malignancy. Patient denies chest pain, shortness of breath, nausea, vomiting, fevers, chills, numbness and tingling. Denies blunt trauma to the area. Physical exam with positive Homans sign on the right with significant swelling to the right foot, 2+ dorsalis pedis, anterior tibialis, posterior tibialis pulses equal bilateral. Normal sensation distally. Regular rate and rhythm. Lungs clear. Abdomen soft nontender nondistended. Concern for inflammatory arthritis versus DVT right lower extremity. No signs of arterial occlusion, threat to limit neurovascular compromise Plan ultrasound, x-ray, will send naproxen and prednisone. Educated patient on diagnosis and treatment plan, answered all question, patient verbalizes understanding. At this time patient will be discharged home, advised to return with new or worsening symptoms. Educated on worrisome signs and symptoms and when to return. At this time I feel comfortable discharge home. [facility] Medical History No known health problems Osteoarthritis of left knee Social History Housing: Apartment Patient Tobacco Use Status: Never used Tobacco e-Cigarette/Vaping Use: Never Used Second Hand Smoke Exposure: No service: No Current occupational status: employed Current occupation: [employer] Current occupational exposures/hazards: Yes Cognitive needs: No Hearing needs: No Vision needs: No Review of Systems Const Details: Constitutional : No Weight loss, No Fever, No Chills, No Fatigue, No Malaise ENT/Mouth : No sore throat, No Rhinorrhea Eyes: No Eye Pain, No Swelling, No Redness Cardiovascular : No Chest Pain, No SOB, No Dyspnea on Exertion, No Orthopnea, No Edema, No Palpitations Respiratory : No Cough, No Sputum, No Wheezing Gastrointestinal : No Nausea, No Vomiting, No Diarrhea, No Constipation, No abdominal Pain, No Hematochezia, No Melena Genitourinary : No Dysuria, No Urinary Frequency, No Hematuria, Musculoskeletal : + joint pain, No Myalgias, + Joint Swelling Skin : No Skin Lesions, No rash Neuro : No Weakness, No Numbness, No Dizziness, No Headache Psych : No Anxiety/Panic, No Depression All other systems reviewed and are negative All systems reviewed & are unremarkable except as noted in HPI and below Physical Exam Vital Signs: Last Vital Signs Temp 98.3 F 04/16/23 08:40 Pulse 76 04/16/23 08:40 BP 126/70 04/16/23 08:40 BMI result Body Mass Index 42.4 vss Appearance: Alert.? Oriented X3.? No acute distress.? Head: Normocephalic, atraumatic, no step-offs or deformities Eyes: Pupils equal, round and reactive to light.? CVS: Normal heart rate and rhythm.? Pulses normal.? Respiratory: No respiratory distress.? Breath sounds normal.? Abdomen: Soft and nontender.? Skin: Skin warm and dry.? Normal skin color.? Normal skin turgor.? Extremities: 5/5 strength to bilateral upper and lower extremities + positive Homans sign on the right with significant swelling to the right foot, 2+ dorsalis pedis, anterior tibialis, posterior tibialis pulses equal bilateral. Normal sensation distally. Regular rate and rhythm. Lungs clear. Abdomen soft nontender nondistended. Back: No midline tenderness, no C-spine tenderness, full range of motion, no CVA tenderness bilaterally Neuro: Oriented X 3.? No motor deficit.? No sensory deficit. CN 2-12 intact Assessment & Plan Assessment & Plan (1) Swelling of right foot: Code(s): M79.89 - Other specified soft tissue disorders Plan Take your medications as prescribed. If you were prescribed antibiotics today, it is important that you take your medication to their entirety, do not skip any doses, do not finish them early. Follow-up with your primary care provider this week. Return to the emergency department with new or worsening symptoms. Such as fevers, chills, chest pain, shortness of breath, nausea, vomiting, dizziness, headache, vision changes, lethargy In case of emergency call 911 Orders: Orders US venous duplex LE RT Today M79.89 - Other specified soft tissue disorders XR foot RT 2V Today M79.89 - Other specified soft tissue disorders Medications: New prednisone 40 mg (2 x 20 mg) PO DAILY 5 days 10 tabs 0RF naproxen 500 mg PO BID PRN 14 tabs 0RF pain Coding Level of Care Code Est Pt Level 3 (54976) Diagnoses Swelling of right foot M79.89
== END 2023-04-16 09:47 | disposition home or self-care (01) ==
PROVIDERS: PCP Nurse Practitioner Family; Visit Provider Physician Assistant
DX: M79.89 Other specified soft tissue disorders (principal)
CPT/HCPCS: 99213

== ENCOUNTER 2023-04-16 09:34 | Outpatient (REF) | payer OTHER, SELFPAY ==
--- NOTE | ~2023-04-16 | US_ITS ---
EXAMINATION: US VENOUS ULTRASOUND WITH DOPPLER LOWER EXTREMITY, RIGHT CLINICAL INFORMATION: Soft tissue swelling COMPARISON: 03/27/2021 TECHNIQUE: Ultrasound of the deep veins is performed from the hip to the calf with compression sonography and color and pulse Doppler assessment. Spectral analysis with color-flow imaging is performed. FINDINGS: There is occlusion with acute echogenic thrombus of both segments and branches of the right gastrocnemius vein which is not compressible. The rest of veins in the right lower extremity revealed no clots, normal venous compression and respiratory variation and augmented flow. The visualized common femoral vein, superficial femoral vein, profunda femoral vein, popliteal vein, and the trifurcation region shows no evidence of deep venous thrombosis. There is no significant popliteal fossa cyst. If the patient's symptoms persist, followup ultrasound in 5 days 7 days might be of value to exclude proximal propagation from a non-visualized calf vein. US/US venous duplex LE RT IMPRESSION: DVT in the right lower extremity. Gastrocnemius vein thrombosis Communication: Preliminary result discussed with provider's office at 10:09 which is no technologist
--- NOTE | ~2023-04-16 | XR_ITS ---
EXAMINATION: XR FOOT, RIGHT CLINICAL INFORMATION: Pain COMPARISON: 01/12/2015 TECHNIQUE: AP, lateral, and oblique views of the right foot. FINDINGS: The bones are normal. No fracture. Alignment is anatomic. Joint spaces are maintained. There is new small plantar calcaneal spur and there is small soft tissue swelling dorsally XR/XR foot RT min 3V IMPRESSION: Soft tissue swelling and plantar calcaneal spur.
[2023-04-16 12:58] LABS: MANUAL DIFF FLAG NO
[2023-04-16 13:15] LABS: Basophils Percent Auto 0.5 % (0-2); Eosinophils Absolute Auto 0.3 X10*3/uL (0.0-0.4); Eosinophils Percent Auto 5.1 % (0-4); Hematocrit 38.9 % (37.0-47.0); Hemoglobin 12.3 g/dl (12.0-16.0); Imm Gran Abs Auto 0.02 X10*3/uL (0.00-0.03); Imm Gran Pct Auto 0.3 % (0.0-0.4); Lymphocytes Absolute Auto 1.5 X10*3/uL (1.2-4.9); Lymphocytes Percent Auto 24.8 % (20-40); Mean Corpuscular HGB Conc 31.6 g/dl (31.0-35.0); Mean Corpuscular Hemoglobin 27.5 pg (27.0-33.0); Mean Corpuscular Volume 86.8 fL (80.0-98.0); Mean Platelet Volume 10.8 fL (9.4-12.3); Monocytes Absolute Auto 0.5 X10*3/uL (0.1-1.2); Monocytes Percent Auto 7.6 % (2-11); Neutrophils Absolute Auto 3.8 x10*3/uL (2.0-8.3); Neutrophils Percent Auto 61.7 % (45-73); Platelet Count 223 X10*3/uL (160-400); Red Blood Count 4.48 X10*6/uL (4.20-5.50); Red Cell Distribution Width 13.4 % (11.0-16.0); White Blood Count 6.1 X10*3/uL (4.8-10.8)
[2023-04-16 13:21] LABS: Anion Gap 14 (12-20); Blood Urea Nitrogen 10 mg/dL (9-16); Calcium 9.1 mg/dL (8.4-10.2); Carbon Dioxide 23 mmol/L (22-29); Chloride 108 mmol/L (96-108); Estimated Glomerular Filt Rate > 60; Glucose Random 76 mg/dL (60-115); Sodium 141 mmol/L (135-145)
== END 2023-04-16 09:35 | disposition home or self-care (01) ==
LOC: HO.HMGCX 09:34
PROVIDERS: PCP Nurse Practitioner Family; Visit Provider Physician Assistant
DX: R60.0 Localized edema (principal)
CPT/HCPCS: 36415; 73630; 80048; 85025; 93971

== ENCOUNTER 2023-05-01 09:56 | Outpatient (AMB) | payer OTHER, SELFPAY ==
[2023-05-01 10:15] VITALS: BP 152/90; PULSE 83; O2SAT 99; BMI 42.2
--- NOTE | 2023-05-01 10:15 | MHC.PC.OV ---
Vital Signs 05/01/23 10:15 Height 5 ft 6 in Weight 261 lb 6 oz BMI 42.2 BP 152/90 H Blood Pressure Location Rt brachial Position Sitting Pulse 83 Pulse Source Pulse Oximeter Pulse Oximetry (%) 99 Oxygen Delivery Method Room Air Intake Visit Reasons: Left knee, Abdominal pain Intake Note: pt is having left knee pain and has been weak and falling more and migraines getting worse Allergies hydromorphone [From DILAUDID] Allergy (Severe, Verified 05/01/23 10:18) DIFFICULTY BREATHING Tobacco use date assessed: 05/01/23 Dental Screening Dental Screen Date: 05/01/23 Did you have a dental visit in the last 12 months?: No Did you have a dental problem in the last 6 months where you did not have access to dental care?: No Was dental information given to patient?: No HPI Left knee, Abdominal pain HPI Details Pt was seen in the walk-in on 04/16 c/o RLE swelling and right foot pain. XR showed soft tissue swelling and plantar calcaneal spur. US showed DVT of the RLE. Pt was sent eliquis but this was not covered. Will send xarelto. Will refer to hematology for further workup. Pt reports intermittent chest discomfort that lasts only 2 minutes. She reports that the pain does not radiate anywhere. EKG today showed NSR. Will order holter to assess further. Denies any current chest pain, shortness of breath, and dizziness. Told her to go to the ER with any worsening symptoms. Due for colon screen, will order cologuard. BP elevated today, will have her take her BP at home, above 140/90 she will let me know [facility] Medical History No known health problems Osteoarthritis of left knee Social History Housing: Apartment Patient Tobacco Use Status: Never used Tobacco e-Cigarette/Vaping Use: Never Used Second Hand Smoke Exposure: No service: No Current occupational status: employed Current occupation: [employer] Current occupational exposures/hazards: Yes Cognitive needs: No Hearing needs: No Vision needs: No Questionnaire Thrive Questionnaire Date Thrive assessed: 01/25/22 YONAS-7 AMB Questionnaire YONAS-7 Date YONAS - 7 assessed: 01/25/22 Source: Developed by Drs. Poncho Canada, Doretha Almeida, Marco Sosa and colleagues, with an educational maame from [employer]. Review of Systems Const Reports as per HPI Physical exam (Primary Care) Vital Signs: Last Vital Signs Pulse 83 05/01/23 10:15 BP 152/90 H 05/01/23 10:15 Pulse Ox 99 05/01/23 10:15 Oxygen Delivery Method Room Air 05/01/23 10:15 BMI result Body Mass Index 42.2 Tobacco/Smoking Status: Tobacco use Status Tobacco use date assessed 05/01/23 05/01/23 10:21 Patient Tobacco Use Status Never used Tobacco 05/01/23 10:21 e-Cigarette/Vaping Use Never Used 05/01/23 10:21 Thrive Assessment: Date of Thrive Assessment Date Thrive assessed 01/25/22 05/01/23 10:21 Const General: cooperative Nutritional Appearance: obese morbidly obese Orientation/consciousness: patient oriented x3 Resp Effort & Inspection: normal respiratory effort Auscultation: clear to auscultation bilaterally Cardio Rate: regular rate Rhythm: regular rhythm Heart sounds: S1 normal heart sound present and S2 normal heart sound present Neuro General: patient oriented x3 Extrem Other: right calf swollen, no warmth, slight tenderness with palpation Psych Appearance: grossly normal Mental Status: mental status grossly normal Speech and movement: Normal speech and movement present Affect: normal affect Attitude: cooperative Thought process: Normal thought process present Thought content: Normal thought content present Insight: Good insight present (Psych) Judgement: Good judgement present (Psych) Assessment and Plan Assessment & Plan (1) DVT (deep vein thrombosis) in : Code(s): O22.30 - Deep phlebothrombosis in , unspecified trimester Plan: Referred to hematology, xarelto sent (2) Palpitations: Code(s): R00.2 - Palpitations (3) Vitamin D deficiency: Code(s): E55.9 - Vitamin D deficiency, unspecified Plan The patient agreed to the use of a medical research associate for this encounter. Scribed for LEA Valles by Basia Fitzpatrick medical research associate, on 05/01/2023 at 10:25 EST. Orders: Orders Complete Blood Count Auto Diff Today R00.2 - Palpitations, Z00.00 - Encounter for general adult medical examination without abnormal findings Comprehensive [place]. Panel Fast Today R00.2 - Palpitations, Z00.00 - Encounter for general adult medical examination without abnormal findings TSH reflex Free T4 Today R00.2 - Palpitations, Z00.00 - Encounter for general adult medical examination without abnormal findings Vitamin D 25-OH Total Today E55.9 - Vitamin D deficiency, unspecified ECG 3 day holter monitor Today R00.2 - Palpitations UA CC w/rflx Micro + Cult Today R00.2 - Palpitations, Z00.00 - Encounter for general adult medical examination without abnormal findings Lipid Panel Today R00.2 - Palpitations, Z00.00 - Encounter for general adult medical examination without abnormal findings Referrals Cologuard Test Z12.11 - Encounter for screening for malignant neoplasm of colon, Z12.12 - Encounter for screening for malignant neoplasm of rectum Hematology & Oncology Referral O22.30 - Deep phlebothrombosis in , unspecified trimester Medications: New rivaroxaban (Xarelto) must administer with evening meal 15 mg PO BID 21 days 42 tabs 0RF Coding Level of Care Code Est Pt Level 3 (40574) Diagnoses DVT (deep vein thrombosis) in O22.30 Palpitations R00.2 Vitamin D deficiency E55.9
== END 2023-05-01 11:13 | disposition home or self-care (01) ==
PROVIDERS: PCP Nurse Practitioner Family; Visit Provider Nurse Practitioner Family
DX: O22.30 Deep phlebothrombosis in pregnancy, unspecified trimester (principal); R00.2 Palpitations; E55.9 Vitamin D deficiency, unspecified
CPT/HCPCS: 99213

== ENCOUNTER → 2023-05-31 13:24 | Outpatient (REF) | payer OTHER, SELFPAY ==
--- NOTE | 2023-05-31 13:28 | HM_ITS ---
* Total monitoring time 3 days. * Underlying rhythm is sinus. Average ventricular rate 90/Min. Range 54 to 141/Min. About 21 % of the time, rate >100/min. * Occasional supraventricular ectopy with a burden of 1.5%. * Very rare ventricular ectopy. * No significant pauses or AV blocks. * Symptoms in patient diary including chest pain, shortness of breath correlates with sinus rhythm, sinus tachycardia and supraventricular ectopy. MTDD
== END ==
LOC: HO.CARD 13:24
PROVIDERS: PCP Nurse Practitioner Family; Visit Provider Nurse Practitioner Family
DX: R00.2 Palpitations (principal)
CPT/HCPCS: 93242

== ENCOUNTER → 2023-05-31 13:28 | Outpatient (BNV) | payer OTHER, SELFPAY | PROVIDERS: PCP Nurse Practitioner Family; Visit Provider Internal Medicine | DX: I47.10 Supraventricular tachycardia, unspecified (principal) | CPT/HCPCS: 93244 ==

== ENCOUNTER 2023-06-20 18:54 | Emergency (ER) | payer OTHER, SELFPAY ==
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
[2023-06-20 19:03] VITALS: BP 123/73; BP 156/93; PULSE 85; PULSE 92; RESP 20; TEMP 36.8; O2SAT 96; O2SAT 99; BMI 42.7
--- NOTE | 2023-06-20 19:03 | MHC.EDTECH ---
Patient unable to manager change due to c-collar
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
[2023-06-20 21:41] VITALS: BP 149/97; PULSE 88; RESP 16; O2SAT 98
== END 2023-06-20 22:06 | disposition home or self-care (01) ==
PROVIDERS: Emergency Provider Student in an Organized Health Care Education/Training Program
DX: S39.012A Strain of muscle, fascia and tendon of lower back, initial encounter (principal); S29.012A Strain of muscle and tendon of back wall of thorax, initial encounter; V43.51XA Car driver injured in collision with sport utility vehicle in traffic accident, initial encounter; M25.511 Pain in right shoulder; Y93.89 Activity, other specified; Y92.414 Local residential or business street as the place of occurrence of the external cause; Y99.9 Unspecified external cause status
CPT/HCPCS: 70450; 72070; 73030; 99284

== ENCOUNTER 2023-08-08 10:14 | Outpatient (AMB) | payer OTHER, SELFPAY ==
--- NOTE | 2023-08-08 10:15 | A.OFFPC_ITS ---
Vital Signs 08/08/23 10:20 Height 5 ft 6 in Weight 253 lb BMI 40.8 BP 110/78 Blood Pressure Location Rt brachial Position Sitting Pulse 78 Pulse Source Pulse Oximeter Pulse Oximetry (%) 98 Oxygen Delivery Method Room Air Intake Visit Reasons: 3 month follow up Intake Note: Patient here to follow up on heart monitor and blood thinners. Allergies hydromorphone [From DILAUDID] Allergy (Severe, Verified 08/08/23 10:21) DIFFICULTY BREATHING Medication List - Last Reconciled [facility]08[facility]23 [facility] rivar[facility] 20 mg PO DAILY 30 days Tobacco use date assessed: 05/01/23 Dental Screening Dental Screen Date: 08/08/23 Did you have a dental visit in the last 12 months?: No Did you have a dental problem in the last 6 months where you did not have access to dental care?: No Was dental information given to patient?: No HPI 3 month follow up HPI Details HTN: Blood pressure is stable. Pt reports that her blood pressure at home has been in the 110s/80s. Denies chest pain, shortness of breath, headache, dizziness, and blurred vision. Pt was referred to hematology due to hx of DVT in . She has not gotten a call on this, will check on status of this. Pt has a cologuard test at home but has not done this. Pt was contacted for a mammogram but has not done this. Will reorder mammo. [facility] Medical History No known health problems Osteoarthritis of left knee Social History Housing: Apartment Patient Tobacco Use Status: Never used Tobacco e-Cigarette/Vaping Use: Never Used Second Hand Smoke Exposure: No service: No Current occupational status: employed Current occupation: [employer] Current occupational exposures/hazards: Yes Cognitive needs: No Hearing needs: No Vision needs: No Questionnaire Thrive Questionnaire Date Thrive assessed: 01/25/22 YONSA-7 AMB Questionnaire YONAS-7 Date YONAS - 7 assessed: 01/25/22 Source: Developed by Drs. Poncho Canada, Doretha Almeida, Marco Sosa and colleagues, with an educational maame from [employer]. Review of Systems Const Reports as per HPI Physical exam (Primary Care) Vital Signs: Last Vital Signs Pulse 78 08/08/23 10:20 BP 110/78 08/08/23 10:20 Pulse Ox 98 08/08/23 10:20 Oxygen Delivery Method Room Air 08/08/23 10:20 BMI result Body Mass Index 40.8 Tobacco/Smoking Status: Tobacco use Status Tobacco use date assessed 05/01/23 08/08/23 10:18 Patient Tobacco Use Status Never used Tobacco 08/08/23 10:18 e-Cigarette/Vaping Use Never Used 08/08/23 10:18 Thrive Assessment: Date of Thrive Assessment Date Thrive assessed 01/25/22 08/08/23 10:18 Const General: cooperative Nutritional Appearance: obese morbidly obese Orientation/consciousness: patient oriented x3 Resp Effort & Inspection: normal respiratory effort Auscultation: clear to auscultation bilaterally Cardio Rate: regular rate Rhythm: regular rhythm Heart sounds: S1 normal heart sound present, S2 normal heart sound present and Murmur heart sound present systolic Neuro General: patient oriented x3 Extrem Right lower extremity: no edema Left lower extremity: no edema Psych Appearance: grossly normal Mental Status: mental status grossly normal Speech and movement: Normal speech and movement present Affect: normal affect Attitude: cooperative Thought process: Normal thought process present Thought content: Normal thought content present Insight: Good insight present (Psych) Judgement: Good judgement present (Psych) Assessment and Plan Assessment & Plan (1) Systolic murmur: Code(s): R01.1 - Cardiac murmur, unspecified Plan: Echo ordered (2) HTN (hypertension): Code(s): I10 - Essential (primary) hypertension Plan The patient agreed to the use of a medical accounts receivable specialist for this encounter. Scribed for LITO Valles-JC by Basia Fitzpatrick medical accounts receivable specialist, on 08/08/2023 at 10:30 EST. Orders: Orders MM screening mammo BI Today Z12.31 - Encounter for screening mammogram for malignant neoplasm of breast CA echo transthoracic complete Today R01.1 - Cardiac murmur, unspecified Coding Level of Care Code Est Pt Level 3 (00881) Diagnoses Systolic murmur R01.1 HTN (hypertension) I10
[2023-08-08 10:20] VITALS: BP 110/78; PULSE 78; O2SAT 98; BMI 40.8
== END 2023-08-08 16:12 | disposition home or self-care (01) ==
PROVIDERS: PCP Nurse Practitioner Family; Visit Provider Nurse Practitioner Family
DX: R01.1 Cardiac murmur, unspecified (principal); I10 Essential (primary) hypertension
CPT/HCPCS: 99213

== ENCOUNTER → 2023-08-29 12:54 | Outpatient (REF) | payer OTHER, SELFPAY ==
--- NOTE | 2023-08-29 12:56 | CA_ITS ---
Transthoracic Echocardiogram Patient (Last, First, Middle): Tasha Menendez, Gender: Female Date of : 1970 Age: 53 Procedure Date: 08/29/2023 Procedure Type: Transthoracic Echocardiogram Location: OP Height: 165.1 cm Weight: 112.04 kg BSA: 2.16 m2 Heart Rate: bpm BP: 119 / 80 mmHg Internet Marketing Director: SALOME Referring MD: Carlos Eduardo Yuan [facility] Human Resources Project Coordinator: Nathen Anthony MD Symptoms: R01.1 - Cardiac murmur, unspecified Study Quality: Adequate ECG Rhythm: Sinus Conclusions: - 1. Normal LV systolic function with LVEF of 60-65%. 2. Cardiac valves within normal limits with increased gradient across aortic valve which could explain the murmur 3. Normal RV systolic pressure 4. No gross pericardial effusion Findings Left Ventricle Normal left ventricular size, thickness, and systolic function. The visually estimated ejection fraction is between 60-65%. Spectral Doppler is indicative of a normal filling pattern.Peak GLS is -21.2%, within normal limits. Right Ventricle Normal right ventricular cavity size and systolic function. Atria Both atria are normal in size. Interatrial shunt cannot be excluded. Aortic Valve Normal aortic valve structure and function. There is no aortic valve regurgitation. Increased gradient noticed across the aortic valve without obvious aortic stenosis Mitral Valve Normal mitral valve structure and function. There is trace mitral valve regurgitation. There is no mitral valve stenosis. Pulmonic Valve The pulmonic valve is likely normal. There is trace pulmonic valve regurgitation. Tricuspid Valve Normal tricuspid valve structure. There is trace tricuspid valve regurgitation. The right ventricular systolic pressure is normal. The right ventricular systolic pressure is 21 mmHg. Normal right atrial pressure. There is no evidence of pulmonary hypertension. Great Vessels All visible segments of the aorta are normal in size. The pulmonary artery was not well visualized. There is no dilatation of the ascending aorta. Venous The inferior vena cava is normal in size and collapses greater than 50% with inspiration. Pericardium/Pleural There is no evidence of pericardial effusion. Prior Study Comparison No prior study available for comparison. Measurements 2D Linear Measurements IVSd: 0.77 0.6-0.9/0.6-1.0 cm LVIDd: 4.63 3.9-5.3/4.2-5.9 cm LVIDd Index: 2.14 2.4-3.2/2.2-3.1 cm/m2 LVIDs: 3.01 2.0-3.6 cm LVPWd: 0.86 0.7-1.1 cm LA Diam: 3.10 2.7-3.8/3.0-4.0 cm LAIDs Index: 1.44 1.5-2.3 cm/m2 LV Mass: 152.52 67-162/88-224 g LV Mass Index: 70.61 43-95/49-115 g/m2 LVOT Diam: 1.90 3.0+(-)1.3 cm 2D Systolic Function EF 4C: 60.30 >55% EF 2C: 66.60 >55% EF BiP: 62.90 >55% Mitral Valve MV Pk E: 0.84 MV PK A: 0.65 MV Decel Time: 213.00 E/A: 1.30 E'Lateral: 10.30 E'Medial: 9.36 E/E' Med: 8.90 E/E' Lat: 8.10 PHT: 62.00 MVA PHT: 3.55 Decel [place]: 3.93 Aortic Valve AoV Pk Tony: 1.79 AoV Mn Tony: 1.25 AoV VTI: 0.41 AoV Pk Grad: 13.00 Aov Mn Grad: 7.00 DALE Cont.VTI: 1.70 LVOT LVOT Pk Tony: 1.05 LVOT Mn Tony: 0.74 LVOT VTI: 0.24 LVOT Pk Grad: 4.00 LVOT Mn Grad: 2.00 LVOT Diam: 1.90 LVOT Area: 2.84 Diastolic Function MV Pk E: 0.84 MV Pk A: 0.65 E/A: 1.30 E'Medial: 9.36 E/E' Med: 8.90 E' Laterial: 10.30 E/E' Lat: 8.10 Right Ventricle TAPSE (mm): 20.40 TVS' Tony: 12.60 Tricuspid Valve TR Pk Tony: 2.14 TR Pk Grad: 18.00 RA Press: 3.00 RVSP: 21.00 Great Vessels Aorta Sinus of Valsalva: 3.32 2.0-3.[address] [place]: 2.54 1.7-3.4 cm Ao Asc: 3.40 2.1-3.4 cm Updated in Other Vendor System with Status of Final Nathen Anthony MD electronically signed on 08/30/2023 2:32:38 PM with status of Final
== END ==
LOC: HO.CARD 12:54
PROVIDERS: Visit Provider Nurse Practitioner Family
DX: R01.1 Cardiac murmur, unspecified (principal)
CPT/HCPCS: 93306; 93356

== ENCOUNTER → 2023-08-29 12:56 | Outpatient (BNV) | payer OTHER, SELFPAY | PROVIDERS: Visit Provider Internal Medicine Cardiovascular Disease | DX: R01.1 Cardiac murmur, unspecified (principal) | CPT/HCPCS: 93306 ==

== ENCOUNTER → 2023-09-17 08:41 | Outpatient (BNV) | payer OTHER, SELFPAY | PROVIDERS: PCP Nurse Practitioner Family; Visit Provider Internal Medicine Medical Oncology | DX: I82.401 Acute embolism and thrombosis of unspecified deep veins of right lower extremity (principal) | CPT/HCPCS: 99204 ==

== ENCOUNTER 2023-09-17 12:37 | Outpatient (REF) | payer OTHER, SELFPAY ==
--- NOTE | ~2023-09-17 | MM_ITS ---
EXAMINATION: MM SCREENING DIGITAL BREAST TOMOSYNTHESIS, BILATERAL CLINICAL INFORMATION: Screening. Asymptomatic. COMPARISON: Mammography: This study is compared with prior exams dating back to 2016. TECHNIQUE: Digital breast tomosynthesis is performed in both the craniocaudal and mediolateral oblique views along with computer-aided detection (CAD). Synthesized 2D images are generated from the tomosynthesis. FINDINGS: The breasts are almost entirely fatty (ACR BI-RADS breast composition Category a). There are no significant masses, abnormal calcifications, or other abnormalities. MM/MM tomosynthesis screening BI IMPRESSION: No mammographic evidence of malignancy. ASSESSMENT: BI-RADS BI-RADS 1 - Negative RECOMMENDATION: Routine annual mammography screening. 1 year F/U This examination should not preclude the clinical evaluation of a suspicious palpable abnormality. This patient's information was entered into a reminder system with a target due date for their next mammogram.
== END 2023-09-17 12:38 | disposition home or self-care (01) ==
LOC: HO.MAMMO 12:37
PROVIDERS: PCP Nurse Practitioner Family; Visit Provider Nurse Practitioner Family
DX: Z12.31 Encounter for screening mammogram for malignant neoplasm of breast (principal)
CPT/HCPCS: 77063; 77067

== ENCOUNTER → 2023-09-17 12:39 | Outpatient (BNV) | payer OTHER, SELFPAY | PROVIDERS: PCP Nurse Practitioner Family; Visit Provider Radiology Diagnostic Radiology | DX: Z12.31 Encounter for screening mammogram for malignant neoplasm of breast (principal) | CPT/HCPCS: 77063; 77067 ==

== ENCOUNTER 2023-09-18 12:45 | Outpatient (REF) | payer OTHER, SELFPAY ==
--- NOTE | ~2023-09-18 | US_ITS ---
EXAMINATION: US VENOUS ULTRASOUND WITH DOPPLER LOWER EXTREMITY, RIGHT CLINICAL INFORMATION: Thrombus in the paired gastrocnemius veins of the right lower extremity on prior ultrasound COMPARISON: Ultrasound venous duplex of the right lower extremity dated 04/16/2023 TECHNIQUE: Ultrasound of the deep veins is performed from the hip to the calf with compression sonography and color and pulse Doppler assessment. Spectral analysis with color-flow imaging is performed. FINDINGS: There is normal venous compression and respiratory variation and augmented flow. The visualized common femoral vein, superficial femoral vein, profunda femoral vein, popliteal vein, and the trifurcation region shows no evidence of deep venous thrombosis. There is no significant popliteal fossa cyst. The paired gastrocnemius veins are patent and compressible, which previously contained thrombi. If the patient's symptoms persist, followup ultrasound in 5 days 7 days might be of value to exclude proximal propagation from a non-visualized calf vein. US/US venous duplex LE RT IMPRESSION: 1. Interval resolution of the thrombi in the paired gastrocnemius veins of the right lower extremity, now widely patent and compressible. 2. No DVT demonstrated in the remaining veins of the right lower extremity.
== END 2023-09-18 12:46 | disposition home or self-care (01) ==
LOC: HO.US 12:45
PROVIDERS: PCP Nurse Practitioner Family; Visit Provider Internal Medicine Medical Oncology
DX: O22.30 Deep phlebothrombosis in pregnancy, unspecified trimester (principal); Z86.718 Personal history of other venous thrombosis and embolism
CPT/HCPCS: 93971

== ENCOUNTER 2023-10-05 08:51 | Outpatient (AMB) | payer OTHER, SELFPAY ==
[2023-10-05 09:19] VITALS: BP 128/76; PULSE 82; TEMP 36.4; O2SAT 98; BMI 39.1
--- NOTE | 2023-10-05 09:19 | AM.OFFWIN_ITS ---
Intake Vital Signs 10/05/23 09:19 Height 5 ft 6 in Weight 242 lb BMI 39.1 BP 128/76 Blood Pressure Location Lt brachial Position Sitting Pulse 82 Pulse Source Pulse Oximeter Temp 97.6 F Temp Source Temporal Artery Scan Pulse Oximetry (%) 98 Oxygen Delivery Method Room Air Intake Visit Reasons: EST/cough and body aches(lobby masked) Intake Note: pt is here today for cough and body aches started Patient Tobacco Use Status: Never used Tobacco Allergies hydromorphone [From DILAUDID] Allergy (Severe, Verified 10/05/23 09:19) DIFFICULTY BREATHING Do you need a note to return to daycare/school/sports/work: Yes HPI HPI Comments History of Present Illness Details 53 y/o female patient who presents to [facility] in clinic with c/o cough and body aches. Symptoms started yesterday morning. She has not taken any OTC remedies. No recent sick contacts. [facility] Medical History No known health problems Osteoarthritis of left knee Family History (Updated 09/17/23 @ 13:47 by Ollie Crandall) Paternal Uncle Lung cancer Throat cancer Social History (Updated 09/17/23 @ 13:47 by Ollie Crandall) Housing: Apartment Patient Tobacco Use Status: Never used Tobacco e-Cigarette/Vaping Use: Never Used Second Hand Smoke Exposure: No service: No Current occupational status: employed Current occupation: [employer] Current occupational exposures/hazards: Yes Cognitive needs: No Hearing needs: No Vision needs: No Review of Systems Const All systems reviewed & are unremarkable except as noted in HPI and below Physical Exam Vital Signs: Last Vital Signs Temp 97.6 F 10/05/23 09:19 Pulse 82 10/05/23 09:19 BP 128/76 10/05/23 09:19 Pulse Ox 98 10/05/23 09:19 Oxygen Delivery Method Room Air 10/05/23 09:19 BMI result Body Mass Index 39.1 Const General: comfortable and no acute distress HEENT Head: Yes normocephalic Ears: external ears normal and TM's normal bilaterally General nose exam: Abnormal mucous membranes and turbinates present boggy and erythematous and Nasal discharge present Mouth: Normal oral and palatal mucosa present, tongue normal and moist mucous membranes Throat: Yes posterior oropharynx normal and Yes uvula midline Resp Effort & Inspection: normal respiratory effort, no audible wheezes and Actively coughing Auscultation: clear to auscultation bilaterally Assessment & Plan Assessment & Plan (1) Cough in adult: Code(s): R05.9 - Cough, unspecified Plan: - Warm fluids - Rest - OTC cold/cough remedies - Acetaminophen for pain relief. (2) Malaise: Code(s): R53.81 - Other malaise Plan: -Acetaminophen for pain relief - Rest Orders: Orders SARS-CoV2/FLU/RSV Today R05.9 - Cough, unspecified Medications: New acetaminophen 1,000 mg (2 x 500 mg) PO Q6H PRN 30 caps 0RF fever R53.81 - Other malaise [id number] 5-10-100 mg/5 mL (Adult Robitussin Peak Cold M-S) 10 mL PO Q4H PRN 237 mL 0RF cold symptoms R05.9 - Cough, unspecified benzonatate 100 mg PO TID 30 caps 0RF R05.9 - Cough, unspecified Coding Level of Care Code Est Pt Level 3 (88173) Diagnoses Cough in adult R05.9 Malaise R53.81 Time Spent (min) 15
== END 2023-10-05 09:58 | disposition home or self-care (01) ==
PROVIDERS: PCP Nurse Practitioner Family; Visit Provider Nurse Practitioner Family
DX: R05.9 Cough, unspecified (principal); R53.81 Other malaise
CPT/HCPCS: 99213

== ENCOUNTER 2023-10-05 12:17 | Outpatient (REF) | payer OTHER, SELFPAY ==
[2023-10-05 13:00] LABS: Influenza A PCR NEGATIVE (Negative); Influenza B PCR NEGATIVE (Negative); Resp Syncy Virus RNA Qual PCR POSITIVE (Negative); SARS COV2 PCR INHOUSE NEGATIVE (Negative)
== END 2023-10-05 12:18 | disposition home or self-care (01) ==
LOC: HO.LNP 12:17
PROVIDERS: Visit Provider Nurse Practitioner Family
DX: Z11.52 Encounter for screening for COVID-19 (principal); Z20.822 Contact with and (suspected) exposure to COVID-19; R05.9 Cough, unspecified
CPT/HCPCS: 0241U

== ENCOUNTER 2024-02-04 13:29 | Outpatient (AMB) | payer OTHER, SELFPAY ==
--- NOTE | 2024-02-04 13:33 | A.OFFPC_ITS ---
Vital Signs 02/04/24 13:37 Height 5 ft 6 in Weight 238 lb BMI 38.4 BP 116/74 Blood Pressure Location Lt brachial Position Sitting Pulse 82 Pulse Source Pulse Oximeter Pulse Oximetry (%) 98 Oxygen Delivery Method Room Air Intake Visit Reasons: Annual PE Intake Note: pt is here for annual PE. Mammogram 09/17/23. Pap smear Overdue Colonoscopy has Cologuard kit at home. Has not done Allergies hydromorphone [From DILAUDID] Allergy (Severe, Verified 02/04/24 14:07) DIFFICULTY BREATHING Medication List - Last Reconciled 02/04/24 by LITO Farris No Known Home Meds Tobacco use date assessed: 02/04/24 Dental Screening Dental Screen Date: 02/04/24 Did you have a dental visit in the last 12 months?: No Did you have a dental problem in the last 6 months where you did not have access to dental care?: Yes Was dental information given to patient?: No HPI HPI Comments History of Present Illness Details Patient is a 54-year-old female in today for physical exam: Meeting for the 1st time. Patient is due for tetanus vaccine will offer today. Patient is up-to-date with mammogram. Patient is declining colonoscopy, will up for Cologuard. Patient due for Pap smear, will refer to OBGYN Will order labs. [facility]LY [facility] Medical History Osteoarthritis of left knee No known health problems Surgical History No pertinent past surgical history Family History Paternal Uncle Lung cancer Throat cancer Social History Housing: Apartment Patient Tobacco Use Status: Never used Tobacco e-Cigarette/Vaping Use: Never Used Second Hand Smoke Exposure: No service: No Current occupational status: employed Current occupation: [employer] Current occupational exposures/hazards: Yes Cognitive needs: No Hearing needs: No Vision needs: No Questionnaire PHQ-9 Over the last 2 weeks, how often have you been bothered by any of the following problems? 1. Little interest or pleasure in doing things: more than half the days 2. Feeling down, depressed, or hopeless: more than half the days 3. Trouble falling or staying asleep, or sleeping too much: more than half the days 4. Feeling tired or having little energy: more than half the days 5. Poor appetite or overeating: not at all 6. Feeling bad about yourself - or that you are a failure or have let yourself or your family down: several days 7. Trouble concentrating on things, such as reading the newspaper or watching television: not at all 8. Moving or speaking so slowly that other people could have noticed. Or the opposite - being so fidgety or restless that you have been moving around a lot more than usual: not at all 9. Thoughts that you would be better off or of hurting yourself in some way: not at all Total score: 9 Depression Screening Interpretation: Negative Depression Screening Done: Yes 57386 - PHQ-9 Billing: Yes Source: Developed by Drs. Poncho Canada, Doretha Almeida, Marco Sosa and colleagues, with an educational maame from [employer]. Thrive Questionnaire Date Thrive assessed: 02/04/24 I am a: Patient What is your living situation today?: I have a steady place to live Within the past 12 months, did the food you bought not last and you didn't have the money to get more?: Never true Within the past 12 months, did you worry whether your food would run out before you got money to buy more?: Never true Do you have trouble paying for medicines?: No Do you have trouble getting transportation to medical appointments?: No Do you have trouble paying your heating and electricity bill?: No Do you have trouble taking care of your child, family member or friend?: No Do you have trouble with day-to-day activities such as bathing, preparing meals, shopping, managing finances, etc.?: No Are you currently unemployed and looking for a job?: No Are you interested in more education?: No Please select the resources that you would like help with: None Currently or been in a relationship where the following occur: no concerns reported THRIVE Score: 0 AUDIT C Alcohol Use Questionnaire (AUDIT-C) 1. How often do you have a drink containing alcohol?: Monthly or less 2. How many drinks containing alcohol do you have on a typical day when you are drinking?: 1 or 2 3. How often do you have six or more drinks on one occasion?: Never Total Score: 1 YONAS-7 AMB Questionnaire YONAS-7 Date YONAS - 7 assessed: 02/04/24 Feeling nervous, anxious, or on edge: 2 = More than half the days Not being able to stop or control worryin = More than half the days Worrying too much about different things: 2 = More than half the days Trouble relaxin = More than half the days Being so restless that it is hard to sit still: 1 = Several days Becoming easily annoyed or irritable: 2 = More than half the days Feeling afraid as if something awful might happen: 2 = More than half the days Total YONAS-7 score (0-4 normal; 5-9 mild; 10-14 moderate; 15-21 severe): 13 Source: Developed by Drs. Poncho Canada, Doretha Almeida, Marco Sosa and colleagues, with an educational maame from [employer]. YONAS-7 Assessment Billing YONAS-7 Assessment Tool: YONAS-7 Assessment 48248 (declining therapy. ) Review of Systems Card Denies chest pain, Reports leg edema (bilateral) and Denies dyspnea Resp Denies dyspnea Psych Denies homicidal ideation and Denies suicidal ideation Physical exam (Primary Care) Care Plan Goal for BP management: BP is controlled. BMI Assessment/Plan discussion: High Tobacco/Smoking Status: Tobacco use Status Tobacco use date assessed 02/04/24 02/04/24 13:39 Patient Tobacco Use Status Never used Tobacco 02/04/24 13:33 e-Cigarette/Vaping Use Never Used 02/04/24 13:33 Depression Screening Interpretation: Negative Thrive Assessment: Date of Thrive Assessment Date Thrive assessed 01/25/22 02/04/24 13:33 Currently or been in a relationship where the following occur: no concerns reported Const General: cooperative and no acute distress Orientation/consciousness: patient oriented x3 Limitations: no limitations HENMT Head: Yes normal to inspection, Yes normocephalic and Yes atraumatic Ears: hearing grossly normal bilaterally and TM's normal bilaterally Face and sinus: Yes normal facial exam Eyes Sclerae: sclerae normal Corneas: corneas normal Pupils: Equal, round and reactive pupils present EOM: EOMs intact bilaterally Direct Ophthalmoscopy: normal light reflex and no photophobia Neck Neck: Yes normal visual inspection, Yes full ROM and Yes no lymphadenopathy Carotids: normal carotid upstroke Resp Effort & Inspection: normal respiratory effort Auscultation: clear to auscultation bilaterally Cardio Rate: regular rate Rhythm: regular rhythm Heart sounds: Murmur heart sound present systolic Peripheral pulses: Peripheral pulses 2+ throughout GI Inspection: Yes normal to inspection Auscultation: normal bowel sounds Rectal Exam - Female: deferred General: Yes no CVA tenderness Back/Spine/Pelvis Back: no CVA tenderness Neuro General: patient oriented x3 and deep tendon reflexes 2+ bilaterally Cranial nerves: Yes CN's II-XII intact bilaterally and Yes Equal, round and reactive pupils present Cognition (Neuro): normal cognition Motor exam (neuro): 5/5 motor strength present throughout Extrem Right lower extremity: edema Details: non-pitting Left lower extremity: edema Details: non-pitting Psych Thought content: Normal thought content present Insight: Good insight present (Psych) Judgement: Good judgement present (Psych) Assessment and Plan Assessment & Plan (1) Encounter for routine adult physical exam with abnormal findings: Comment: Patient is due for tetanus vaccine will offer today. Patient is up-to-date with mammogram. Patient is declining colonoscopy, will up for Cologuard. Patient due for Pap smear, will refer to OBGYN Will order labs. Code(s): Z00.01 - Encounter for general adult medical examination with abnormal findings (2) Muscle cramps: Comment: Educated she can utilize 400mg PO daily of magnesium. Code(s): R25.2 - Cramp and spasm (3) HTN (hypertension): Comment: Patients blood pressured is controlled. Code(s): I10 - Essential (primary) hypertension Qualifiers: Hypertension type: unspecified Qualified Code(s): I10 - Essential (primary) hypertension (4) Lower extremity edema: Comment: Will order Ultrasound. Patient has history of DVT, and strong family history of DVT. Code(s): R60.0 - Localized edema Plan: draw labs Plan Will follow up with results. Orders: Orders Complete Blood Count Auto Diff Today Z13.0 - Encounter for screening for diseases of the blood and blood-forming organs and certain disorders involving the immune mechanism Comprehensive Met. Panel Today Z91.89 - Other specified personal risk factors, not elsewhere classified Magnesium Today R25.2 - Cramp and spasm Vitamin D 25-OH (D2 and D3) Today Z13.21 - Encounter for screening for nutritional disorder Vitamin B6 Today Z13.21 - Encounter for screening for nutritional disorder Vitamin B12 Today Z13.21 - Encounter for screening for nutritional disorder UA CC w/rflx Micro + Cult Today Z13.89 - Encounter for screening for other disorder TSH reflex Free T4 Today Z13.29 - Encounter for screening for other suspected endocrine disorder Lipid Panel Today Z13.220 - Encounter for screening for lipoid disorders US venous duplex LE BI Today Z86.718 - Personal history of other venous thrombosis and embolism Referrals SPORTS TEACHER Referral Z12.4 - Encounter for screening for malignant neoplasm of cervix Coding Level of Care Code Est Pt Prev Care 40-64y(26686) Diagnoses Encounter for routine adult physical exam with abnormal findings Z00.01 Muscle cramps R25.2 Hypertension, unspecified type I10 Hypertension type: unspecified Lower extremity edema R60.0 Additional Codes YONAS-7 Assessment Billing - YONAS-7 Assessment Tool: YONAS-7 Assessment 75240 ([id number]) Time Spent (min) 32
[2024-02-04 13:37] VITALS: BP 116/74; PULSE 82; O2SAT 98; BMI 38.4
== END 2024-02-04 14:32 | disposition home or self-care (01) ==
PROVIDERS: Visit Provider Nurse Practitioner Primary Care
DX: Z00.00 Encounter for general adult medical examination without abnormal findings (principal); R25.2 Cramp and spasm; I10 Essential (primary) hypertension; R60.0 Localized edema
CPT/HCPCS: 99396

== ENCOUNTER 2024-02-04 14:34 | Outpatient (REF) | payer OTHER, SELFPAY ==
--- NOTE | ~2024-02-04 | US_ITS ---
EXAMINATION: US VENOUS ULTRASOUND WITH DOPPLER LOWER EXTREMITY, BILATERAL CLINICAL INFORMATION: Bilateral leg edema and pain COMPARISON: Right lower extremity ultrasound 09/18/2023 and right lower extremity ultrasound 04/16/2023 TECHNIQUE: Ultrasound of the deep veins is performed from the hip to the calf with compression sonography and color and pulse Doppler assessment. Spectral analysis with color-flow imaging is performed. FINDINGS: RIGHT: There is normal venous compression and respiratory variation and augmented flow. The visualized common femoral vein, superficial femoral vein, profunda femoral vein, popliteal vein, and the trifurcation region shows no evidence of deep venous thrombosis. Previously seen gastrocnemius this thrombus that had resolved at the time of the prior study has not recurred. There is no significant popliteal fossa cyst. LEFT: There is normal venous compression and respiratory variation and augmented flow. The visualized common femoral vein, superficial femoral vein, profunda femoral vein, popliteal vein, and the trifurcation region shows no evidence of deep venous thrombosis. There is no significant popliteal fossa cyst. If the patient's symptoms persist, followup ultrasound in 5 days 7 days might be of value to exclude proximal propagation from a non-visualized calf vein. US/US venous duplex LE BI IMPRESSION: No DVT demonstrated in either lower extremity.
== END 2024-02-04 14:35 | disposition home or self-care (01) ==
LOC: HO.HMGCX 14:34
PROVIDERS: PCP Nurse Practitioner Family; Visit Provider Nurse Practitioner Primary Care
DX: Z86.718 Personal history of other venous thrombosis and embolism (principal)
CPT/HCPCS: 93970

== ENCOUNTER 2024-02-05 09:41 | Outpatient (REF) | payer OTHER, SELFPAY ==
--- NOTE | ~2024-02-05 | XR_ITS ---
EXAMINATION: XR SACROILIAC JOINTS CLINICAL INFORMATION: Sacrococcygeal disorders. COMPARISON: None available. TECHNIQUE: 3 views of the sacroiliac joints FINDINGS: Right sacroiliac joint: Minimal subchondral cyst along the distal aspect joint indicative of mild/focal arthrosis. Joint otherwise unremarkable. Left sacroiliac joint: Normal. Remaining bones joints and soft tissues in the visualized pelvis normal. XR/XR sacroiliac joint 1-2V IMPRESSION: 1. Mild/focal arthrosis of the right sacroiliac joint. 2. Normal left sacroiliac joint.
[2024-02-05 13:07] LABS: MANUAL DIFF FLAG NO
[2024-02-05 13:29] LABS: Basophils Percent Auto 0.6 % (0-2); Eosinophils Absolute Auto 0.2 X10*3/uL (0.0-0.4); Eosinophils Percent Auto 3.3 % (0-4); Hematocrit 37.1 % (37.0-47.0); Imm Gran Abs Auto 0.01 X10*3/uL (0.00-0.03); Imm Gran Pct Auto 0.2 % (0.0-0.4); Lymphocytes Absolute Auto 1.2 X10*3/uL (1.2-4.9); Lymphocytes Percent Auto 25.4 % (20-40); Mean Corpuscular HGB Conc 32.3 g/dl (31.0-35.0); Mean Corpuscular Hemoglobin 28.2 pg (27.0-33.0); Mean Corpuscular Volume 87.1 fL (80.0-98.0); Mean Platelet Volume 10.7 fL (9.4-12.3); Monocytes Absolute Auto 0.4 X10*3/uL (0.1-1.2); Monocytes Percent Auto 7.6 % (2-11); Neutrophils Percent Auto 62.9 % (45-73); Platelet Count 231 X10*3/uL (160-400); Red Blood Count 4.26 X10*6/uL (4.20-5.50); Red Cell Distribution Width 13.6 % (11.0-16.0); White Blood Count 4.8 X10*3/uL (4.8-10.8)
[2024-02-05 13:33] LABS: Appearance Urine Clear; Color Urine Yellow; Glucose Urine UA Negative (Negative); Leukocyte Esterase Urine Trace (Negative); Nitrite Urine Negative (Negative); Specific Gravity - Urine 1.015 (1.005-1.025); UMIC TRIGGER UACC YES; Urine Blood Small (1+) (Negative); Urine Ketones Negative (Negative); Urine Protein Negative (Neg-Trace)
[2024-02-05 13:46] LABS: Bacteria Urine 2+ (None Seen); Hyaline Casts Urine 0-2 /LPF (0-2); RBC Urine 0-2 /HPF (0-2); Squamous Epithelial Cell Urine 0-2 /HPF (0-2); WBC Urine 0-5 /HPF (0-5)
[2024-02-05 14:01] LABS: Alanine Aminotransferase 10 U/L (0-31); Albumin Level 3.6 g/dL (3.5-5.0); Alkaline Phosphatase 51 U/L (39-117); Anion Gap 10 (12-20); Aspartate Amino Transferase 13 U/L (5-31); Bilirubin Total 0.6 mg/dL (0.0-1.0); Blood Urea Nitrogen 10 mg/dL (9-16); Calcium 8.5 mg/dL (8.4-10.2); Carbon Dioxide 27 mmol/L (22-29); Chloride 108 mmol/L (96-108); Cholesterol 195 mg/dL (<200); Estimated Glomerular Filt Rate > 60; Glucose Random 89 mg/dL (60-115); HDL Cholesterol 56 mg/dL (>40); LDL Cholesterol Calculated 127 mg/dL (<100); Potassium 4.1 mmol/L (3.3-5.1); Sodium 141 mmol/L (135-145); Triglycerides 60 mg/dL (<150)
[2024-02-05 14:04] LABS: TSH reflex Free T4 1.76 uIU/mL (0.32-4.0)
[2024-02-05 14:06] LABS: Vitamin B12 373 pg/mL (200-900)
[2024-02-10 13:23] LABS: Vitamin B6 5.6 ng/mL (2.1-21.7)
[2024-02-11 06:14] LABS: Vitamin D 25-OH, D2 <4 ng/mL; Vitamin D 25-OH, D3 14 ng/mL; Vitamin D 25-OH, Total 14 ng/mL (30-100)
== END 2024-02-05 09:42 | disposition home or self-care (01) ==
LOC: HO.HMGCX 09:41
PROVIDERS: PCP Nurse Practitioner Family; Visit Provider Nurse Practitioner Primary Care
DX: Z13.21 Encounter for screening for nutritional disorder (principal); Z13.29 Encounter for screening for other suspected endocrine disorder; Z13.0 Encounter for screening for diseases of the blood and blood-forming organs and certain disorders involving the immune mechanism; Z91.89 Other specified personal risk factors, not elsewhere classified; R25.2 Cramp and spasm; Z13.220 Encounter for screening for lipoid disorders; M53.3 Sacrococcygeal disorders, not elsewhere classified; G89.29 Other chronic pain
CPT/HCPCS: 36415; 72200; 80053; 80061; 81001; 82306; 82607; 83735; 84207; 84443; 85025

== ENCOUNTER 2024-06-19 10:31 | Outpatient (AMB) | payer OTHER, SELFPAY ==
--- NOTE | 2024-06-19 10:39 | MHC.OFFVIS ---
Vital Signs 06/19/24 10:41 Height 5 ft 6 in Weight 242 lb 6 oz BMI 39.1 Intake Visit Reasons: [employer] annual exam/DO NOT RS Seconds Handler Required: No Allergies hydromorphone [From DILAUDID] Allergy (Severe, Verified 06/19/24 10:46) DIFFICULTY BREATHING Medication List - Last Reconciled 06/19/24 by Flora Love LPN No Known Home Meds Is last menstrual period known: Yes Last menstrual period: 04/29/24 Post menopausal: No Patient : No HPI Comments Details: Presenting for annual exam. No complaints. Last Pap smear was negative in Last Mammogram was BI-RADS 1 in 09/12 No previous screening [facility] Medical History Inguinal hernia Osteoarthritis of left knee No known health problems Surgical History Gastric bypass status for obesity Tubal ligation status No pertinent past surgical history Family History Paternal Uncle Lung cancer Throat cancer Social History Housing: Apartment Patient Tobacco Use Status: Never used Tobacco e-Cigarette/Vaping Use: Never Used Second Hand Smoke Exposure: No service: No Current occupational status: employed Current occupation: [employer] Current occupational exposures/hazards: Yes Cognitive needs: No Hearing needs: No Vision needs: No Female Reproductive History Menstrual Age of Menarche: 14 Duration of menses: 6-7 days Date of last menstrual period: 04/29/24 control method: permanent sterilization Total pregnancies: 2 Full term: 2 History of abnormal pap smear: No History of STI: No Review of Systems Const All systems reviewed & are unremarkable except as noted in HPI and below Card Reports as per HPI Resp Reports as per HPI GI Reports as per HPI and Reports no additional complaints Reports as per HPI Physical Exam Vital Signs: BMI result Body Mass Index 39.1 Const General: cooperative, healthy appearing and comfortable Chest Chest palpation & inspection: normal inspection of the chest and normal palpation of entire chest wall Breast/axilla inspection: normal inspection of the breasts and normal inspection of the axillae Breast/axilla palpation: normal palpation of the breasts, normal palpation of the axillae and no axillary lymphadenopathy Resp Effort & Inspection: normal respiratory effort Auscultation: clear to auscultation bilaterally Percussion: percussion normal Cardio Palpation: normal PMI Rate: regular rate Rhythm: regular rhythm Heart sounds: no murmurs and no rubs Peripheral pulses: Peripheral pulses 2+ throughout GI Inspection: Yes normal to inspection Palpation (GI): Soft to palpation, nontender, no guarding, not rigid and No hepatosplenomegaly present Percussion: Yes normal to percussion Auscultation: normal bowel sounds Rectal Exam - Female: deferred General: Yes bladder normal to palpation External Female Exam: No lesion Speculum Exam - Vagina: normal appearance of the vagina, normal palpation, normal vaginal discharge and not erythematous Speculum Exam - Cervix: normal appearance of the cervix and normal palpation Bimanual exam- vagina & uterus: normal bimanual exam, normal palpation, uterine size normal, bladder normal to palpation, consistency normal and normal palpation Bimanual Exam- Adnexa, other: normal adnexae, no masses and no tenderness Assessment & Plan Assessment & Plan (1) Well woman exam: Code(s): Z01.419 - Encounter for gynecological examination (general) (routine) without abnormal findings Category: Medical Plan: Co testing done. Counseled the patient about the recommended dietary allowance of 1200 mg of Calcium & 600 IU of vitamin D. Instructions given the patient to schedule next screening Mammogram in 09/13. The patient was referred to GI for screening colonoscopy . The patient was instructed to perform monthly self-breast exams and schedule annual exam in a year. All questions answered and the patient verbalized understanding. Orders: Referrals Gastroenterology Referral Z12.11 - Encounter for screening for malignant neoplasm of colon Coding Level of Care Code New Pt Prev Care 40-64y(90032) Diagnoses Well woman exam Z01.419
[2024-06-19 10:41] VITALS: BMI 39.1
== END 2024-06-19 11:19 | disposition home or self-care (01) ==
LOC: HO.HWS 10:31
PROVIDERS: PCP Nurse Practitioner Family; Visit Provider Obstetrics & Gynecology
DX: Z01.419 Encounter for gynecological examination (general) (routine) without abnormal findings (principal)
CPT/HCPCS: 99386

== ENCOUNTER 2024-06-19 10:31 | Outpatient (REF) | payer OTHER, SELFPAY ==
[2024-06-20 10:37] LABS: HPV 16,18/45 See PAP report
== END 2024-06-19 10:32 | disposition home or self-care (01) ==
LOC: HO.LNP 10:31
PROVIDERS: PCP Nurse Practitioner Family; Visit Provider Obstetrics & Gynecology
DX: Z01.419 Encounter for gynecological examination (general) (routine) without abnormal findings (principal); Z11.51 Encounter for screening for human papillomavirus (HPV); Z87.42 Personal history of other diseases of the female genital tract
CPT/HCPCS: 87624; 88175

== ENCOUNTER 2025-03-27 15:59 | Outpatient (AMB) | payer OTHER, SELFPAY ==
[2025-03-27 16:39] VITALS: BP 132/94; PULSE 84; TEMP 36.6; O2SAT 97; BMI 42.0
--- NOTE | 2025-03-27 16:39 | MHC.OFFWIV ---
Intake Vital Signs 03/27/25 16:39 Height 5 ft 6 in Weight 260 lb BMI 42.0 BP 132/94 H Blood Pressure Location Rt brachial Position Standing Pulse 84 Pulse Source Pulse Oximeter Temp 97.9 F Temp Source Oral Pulse Oximetry (%) 97 Oxygen Delivery Method Room Air Intake Visit Reasons: EP Pain in lt side back Intake Note: presents with left lower back pain, spasms/pulling feeling, burning, tingling for 6 weeks- denies injury or any bladder issues, pain increases when laying down- unable to lay legs flat Patient Tobacco Use Status: Never used Tobacco Allergies hydromorphone (From DILAUDID) Allergy (Severe, Verified 03/27/25 16:39) DIFFICULTY BREATHING Do you need a note to return to daycare/school/sports/work: No HPI HPI Comments History of Present Illness Details This is a 55-year-old female with a past medical history of sciatic pain presenting for evaluation of left low back pain that she has had for the past 6 weeks. Patient denies any injury or trauma preceding the onset of her symptoms but comes today because the pain is now radiating down her left leg all the way to her left foot over the past 2 weeks. Patient has been taking Naprosyn and Tylenol intermittently without relief of her discomfort. Patient denies having any bowel incontinence, bladder incontinence or saddle paresthesias [facility] Medical History Inguinal hernia Osteoarthritis of left knee No known health problems Surgical History Gastric bypass status for obesity Tubal ligation status No pertinent past surgical history Family History Paternal Uncle Lung cancer Throat cancer Social History Housing: Apartment Patient Tobacco Use Status: Never used Tobacco e-Cigarette/Vaping Use: Never Used Second Hand Smoke Exposure: No service: No Current occupational status: employed Current occupation: [employer] Current occupational exposures/hazards: Yes Cognitive needs: No Hearing needs: No Vision needs: No Female Reproductive History Menstrual Age of Menarche: 14 Review of Systems Const All systems reviewed & are unremarkable except as noted in HPI and below Reports no additional complaints, Denies chills, Denies fatigue and Denies fever(s) GI Denies change in bowel habits and Reports other (No bowel incontinence) Denies urinary incontinence Musc Reports back pain and Reports radiating pain into limb (Left) Skin/Breast Reports system reviewed and no additional complaints, except as documented Neuro Reports no additional complaints Psych Reports no additional complaints Endo Reports no additional complaints and Denies fatigue Aller/Immun Reports no additional complaints Physical Exam Vital Signs: Last Vital Signs Temp 97.9 F 03/27/25 16:39 Pulse 84 03/27/25 16:39 BP 132/94 H 03/27/25 16:39 Pulse Ox 97 03/27/25 16:39 Oxygen Delivery Method Room Air 03/27/25 16:39 BMI result Body Mass Index 42.0 Const General: cooperative, healthy appearing, comfortable, no acute distress, well developed, alert, awake and Physically active; No acute distress, diaphoretic or ill appearing Nutritional Appearance: obese Orientation/consciousness: patient oriented x3 Limitations: no limitations Back/Spine/Pelvis Thoracic/Lumbar Spine: thoracic and lumbar spine normal to inspection, thoraco-lumbar ROM normal, paraspinal muscle tenderness on the left in the mid lumbar and in the lower lumbar, No thoracic spinal tenderness, No lumbar spinal tenderness and straight leg raise positive (SLR ellicits left lumbar pain) Sacroiliac joints: on the left nontender Skin General skin exam: no rashes or lesions noted Neuro General: patient oriented x3 Sensory Exam: Abnormal lower extremity sensory exam (Sensation is intact throughout the LLE including plantar foot) Psych Appearance: grossly normal Mental Status: mental status grossly normal Insight: Fair insight present (Psych) Judgement: Limited judgement present (Psych) Assessment & Plan Assessment & Plan (1) Lumbar back pain with radiculopathy affecting left lower extremity: Comment: Patient is evaluated. No red flags noted on clinical examination. Patient will be prescribed Naprosyn and Robaxin and physical therapy evaluation will be requested. Patient will follow up with her primary care physician as an outpatient. Code(s): M54.16 - Radiculopathy, lumbar region Plan: Naprosyn 500 mg b.i.d. and methocarbamol 750 mg q.8 hours times 7-10 days. Referral for physical therapy evaluation is placed. Orders: Orders PT Evaluation and Treatment Today M54.16 - Radiculopathy, lumbar region Medications: New methocarbamol 750 mg PO Q8H 30 tabs 0RF naproxen (Naprosyn) 500 mg PO BID 20 tabs 0RF Coding Level of Care Code Est Pt Level 3 (28748) Diagnoses Lumbar back pain with radiculopathy affecting left lower extremity M54.16 Time Spent (min) 20
== END 2025-03-27 17:16 | disposition home or self-care (01) ==
PROVIDERS: PCP Nurse Practitioner Family
DX: M54.16 Radiculopathy, lumbar region (principal)

== ENCOUNTER 2025-04-13 06:42 | Outpatient (REF) | payer OTHER, SELFPAY ==
--- NOTE | ~2025-04-13 | XR_ITS ---
EXAMINATION: XR KNEE 1-2 VIEWS LEFT HISTORY: M54.50 - Knee, unspecified COMPARISON: Comparison is made with the prior examination dated 2520. FINDINGS: AP and lateral views of the left knee are submitted. Osseous mineralization is normal. There is no fracture or dislocation. There is severe osteoarthritis of the medial compartment with joint space narrowing and osteophyte formation. There is mild narrowing of the patellofemoral compartment. There is a small to moderate joint effusion. XR/XR knee LT 2V IMPRESSION: Small to moderate joint effusion. Osteoarthritis as described. Electronically signed by: Poncho Barclay MD 04/13/2025 09:53 AM EDT
--- NOTE | ~2025-04-13 | XR_ITS ---
EXAMINATION: XR LUMBAR SPINE 2-3 VIEWS HISTORY: M54.50 - Low back pain, unspecified COMPARISON: Comparison is made with the prior examination dated 01/04/2015. FINDINGS: AP, lateral, and coned down views of the lumbar spine are submitted. Osseous mineralization is normal. Five nonrib-bearing lumbar vertebral bodies are identified, maintaining normal height and alignment without evidence of fracture or spondylolisthesis. There is moderate degenerative disc disease at the L1-2 and L5-S1 levels with disc space narrowing and osteophyte formation. Milder changes are noted at the remaining levels. There is osteoarthritis of the lower lumbar facet joints. And IVC filter is seen in place. XR/XR lumbar spine 2-3V IMPRESSION: Degenerative changes of the lumbar spine as described. Electronically signed by: Poncho Barclay MD 04/13/2025 09:55 AM EDT
[2025-04-13 13:14] LABS: Appearance Urine Clear; Glucose Urine UA Negative (Negative); PH 7.0 (5.0-9.0); Specific Gravity - Urine 1.020 (1.005-1.025); UMIC TRIGGER UACC YES
[2025-04-13 13:34] LABS: MANUAL DIFF FLAG NO
[2025-04-13 13:44] LABS: Hematocrit 37.6 % (37.0-47.0); Hemoglobin 11.7 g/dl (12.0-16.0); Imm Gran Abs Auto 0.01 X10*3/uL (0.00-0.03); Imm Gran Pct Auto 0.2 % (0.0-0.4); Lymphocytes Absolute Auto 1.2 X10*3/uL (1.2-4.9); Mean Corpuscular HGB Conc 31.1 g/dl (31.0-35.0); Mean Corpuscular Hemoglobin 27.3 pg (27.0-33.0); Mean Corpuscular Volume 87.6 fL (80.0-98.0); NRBC Abs Auto 0.000 X10*3/uL (0.0-0.012); NRBC Pct Auto 0.0 /100WBC (0.0-0.2); Platelet Count 249 X10*3/uL (160-400); Red Blood Count 4.29 X10*6/uL (4.20-5.50); White Blood Count 5.4 X10*3/uL (4.8-10.8)
[2025-04-13 13:46] LABS: B Type Natriuretic Peptide 23 pg/mL (<100)
[2025-04-13 14:07] LABS: D Dimer High Sensitivity 377 NG/ML
[2025-04-13 14:11] LABS: Alanine Aminotransferase 11 U/L (0-31); Albumin Level 3.8 g/dL (3.5-5.0); Alkaline Phosphatase 64 U/L (39-117); Anion Gap 9 (12-20); Aspartate Amino Transferase 21 U/L (5-31); Blood Urea Nitrogen 14 mg/dL (9-16); Calcium 8.7 mg/dL (8.4-10.2); Carbon Dioxide 26 mmol/L (22-29); Chloride 108 mmol/L (96-108); Estimated Glomerular Filt Rate > 60; Potassium 4.3 mmol/L (3.3-5.1); Sodium 139 mmol/L (135-145); Total Protein 7.0 g/dL (6.5-8.0)
== END 2025-04-13 06:43 | disposition home or self-care (01) ==
LOC: HO.HMGCX 06:42
PROVIDERS: PCP Nurse Practitioner Family; Visit Provider Nurse Practitioner Family
DX: M79.89 Other specified soft tissue disorders (principal); M54.50 Low back pain, unspecified; M25.562 Pain in left knee; M54.16 Radiculopathy, lumbar region
CPT/HCPCS: 36415; 72100; 73560; 80053; 81001; 83880; 84443; 85025; 85379; 88112

== ENCOUNTER 2025-04-13 06:42 | Outpatient (AMB) | payer OTHER, SELFPAY ==
--- NOTE | 2025-04-13 07:26 | MHC.PC.OV ---
Intake Visit Reasons: PT referral Allergies hydromorphone (From DILAUDID) Allergy (Severe, Verified 04/13/25 07:29) DIFFICULTY BREATHING Medication List - Last Reconciled 04/13/25 by LEA Christiansen methocarbamol 750 mg PO Q8H naproxen (Naprosyn) 500 mg PO BID Tobacco use date assessed: 02/04/24 Dental Screening Dental Screen Date: 02/04/24 [facility] Medical History Inguinal hernia Osteoarthritis of left knee No known health problems Surgical History Gastric bypass status for obesity Tubal ligation status No pertinent past surgical history Family History Paternal Uncle Lung cancer Throat cancer Social History Housing: Apartment Patient Tobacco Use Status: Never used Tobacco e-Cigarette/Vaping Use: Never Used Second Hand Smoke Exposure: No service: No Current occupational status: employed Current occupation: [employer] Current occupational exposures/hazards: Yes Cognitive needs: No Hearing needs: No Vision needs: No Female Reproductive History Menstrual Age of Menarche: 14 Questionnaire Thrive Questionnaire Date Thrive assessed: 02/04/24 AUDIT C Alcohol Use Questionnaire (AUDIT-C) 2. How many drinks containing alcohol do you have on a typical day when you are drinking?: 1 or 2 3. How often do you have six or more drinks on one occasion?: Never Total Score: 0 YONAS-7 AMB Questionnaire YONAS-7 Date YONAS - 7 assessed: 02/04/24 Source: Developed by Drs. Poncho Canada, Doretha Almeida, Marco Sosa and colleagues, with an educational maame from [employer]. Physical exam (Primary Care) Tobacco/Smoking Status: Tobacco use Status Tobacco use date assessed 02/04/24 04/13/25 07:27 Patient Tobacco Use Status Never used Tobacco 04/13/25 07:27 e-Cigarette/Vaping Use Never Used 04/13/25 07:27 Thrive Assessment: Date of Thrive Assessment Date Thrive assessed 02/04/24 04/13/25 07:27 Telehealth Telehealth Telehealth Platform: [facility] Location of provider rendering services: practice address Location of patient: address on file Patient Identification confirmed using: Name, : Yes Telehealth method: video Patient verbally consented to treatment: Yes Patient verbally consented to billing insurance company: Yes Patient informed of any privacy concerns related to visit: Yes Minutes spent on Phone/Video with Pt.: 13 Coding Level of Care Code Tele Est Pt Level 3 (12302) Diagnoses Swelling of both lower extremities M79.89 Lumbar back pain with radiculopathy affecting left lower extremity M54.16 Assessment & Plan Assessment & Plan (1) Swelling of both lower extremities: Code(s): M79.89 - Other specified soft tissue disorders Category: Medical (2) Lumbar back pain with radiculopathy affecting left lower extremity: Code(s): M54.16 - Radiculopathy, lumbar region Category: Medical Plan . Orders: Orders XR lumbar spine 2-3V Today M54.50 - Low back pain, unspecified Comprehensive Met. Panel Today M79.89 - Other specified soft tissue disorders D Dimer High Sensitivity Today M79.89 - Other specified soft tissue disorders PT Evaluation and Treatment Today M54.16 - Radiculopathy, lumbar region, M79.89 - Other specified soft tissue disorders UA CC w/rflx Micro + Cult Today M79.89 - Other specified soft tissue disorders XR knee LT 2V Today M25.562 - Pain in left knee B Type Natriuretic Peptide Today M79.89 - Other specified soft tissue disorders Complete Blood Count Auto Diff Today M79.89 - Other specified soft tissue disorders TSH reflex Free T4 Today M79.89 - Other specified soft tissue disorders
== END 2025-04-13 07:44 | disposition home or self-care (01) ==
LOC: HO.HMCC 06:43
PROVIDERS: PCP Nurse Practitioner Family; Visit Provider Nurse Practitioner Family
DX: M79.89 Other specified soft tissue disorders (principal); M54.16 Radiculopathy, lumbar region

== ENCOUNTER → 2025-04-13 09:37 | Outpatient (BNV) | payer OTHER, SELFPAY | PROVIDERS: PCP Nurse Practitioner Family; Visit Provider Radiology Diagnostic Radiology | DX: R60.0 Localized edema (principal); M51.360 Other intervertebral disc degeneration, lumbar region with discogenic back pain only; M17.12 Unilateral primary osteoarthritis, left knee; M25.462 Effusion, left knee | CPT/HCPCS: 72100; 73560; 93970 ==

== ENCOUNTER 2025-04-13 15:28 | Outpatient (REF) | payer OTHER, SELFPAY ==
--- NOTE | ~2025-04-13 | US_ITS ---
EXAMINATION: US TRIPLEX LOWER EXTREMITY, BILATERAL CLINICAL INFORMATION: Localized edema. COMPARISON: None available. TECHNIQUE: Color-flow triplex imaging with spectral analysis and compression Doppler were performed on the bilateral lower extremities. FINDINGS: Respiratory variation, normal compression and augmented flow are noted throughout the bilateral lower extremities. The visualized common femoral vein, superficial femoral vein, profunda femoral vein, popliteal vein and midcalf peroneal and posterior tibial venous segments show no evidence of deep venous thrombosis bilaterally. There is no Delgado's cyst. US/US venous duplex LE BI IMPRESSION: No evidence of deep venous thrombosis involving the bilateral lower extremities. Electronically signed by: Venu Benítez MD 04/13/2025 04:03 PM EDT
--- OUTSIDE RECORDS SUMMARY | 2025-04-13 17:06 | XMS_ITS | Clinical Summary ---
Author Organization [facility] Address [address] [facility] [address] [place] [phone] Phone Care Team Providers Care [employer] Principal Name Role Phone Pcp, Unknown Primary Care Provider Unavailabl e Allergies Active Allergy Reactions Criticality Noted Date Comments Hydromorphone Medium 05/15/2023 Medications No known medications Social History Tobacco Use Types Packs/Day Years Used Date Smoking Tobacco: Never Assessed Education Answer Date Recorded Are you interested in more education? Not on christian e 05/15/2023 Are you concerned about learning? Not on file 05/15/2023 No 05/15/2023 No 05/15/2023 Digital Access Answer Date Recorded No 05/15/2023 No 05/15/2023 Reliable internet access at home? Not on file 05/15/2023 Device with a working camera? Not on file Comments Unknown Sex and Gender Information Value Date Recorded Sex Assigned at Not on file Legal Sex Female 12:30 PM EDT Gender Identity Not on file Sexual Orientation Not on file Last Filed Vital Signs Vital Sign Reading Time Taken Comments Blood Pressure 132/82 05/15/2023 4:40 PM EDT Pulse 81 05/15/2023 4:40 PM EDT Temperature 36.5 C (97.7 F) 05/15/2023 4:40 PM EDT Respiratory Rate 18 05/15/2023 4:40 PM EDT Oxygen Saturation 96% 05/15/2023 4:40 PM EDT Inhaled Oxygen Concentration - - Weight - - Height - - Body Mass Index - - Plan of Treatment Not on file Medical Devices Not on file Care Teams [employer] Principal Relationship Specialty Start Date End Date Pcp, Unknown PCP - General 05/15/23 Additional Source Comments The information contained in this document represents components of the legal health record. It is not the complete legal health record.[facility]
== END 2025-04-13 15:29 | disposition home or self-care (01) ==
LOC: HO.US 15:28
PROVIDERS: PCP Nurse Practitioner Family; Visit Provider Nurse Practitioner Family
DX: R60.0 Localized edema (principal); R79.89 Other specified abnormal findings of blood chemistry; R31.29 Other microscopic hematuria
CPT/HCPCS: 87086; 93970

== ENCOUNTER 2025-08-19 15:14 | Outpatient (AMB) | payer OTHER, SELFPAY ==
[2025-08-19 15:23] VITALS: BP 128/84; PULSE 78; RESP 16; O2SAT 100; BMI 42.8
--- NOTE | 2025-08-19 15:23 | A.OFFPC_ITS ---
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 Required: No Accompanied by: Self / Same As Patient Allergies hydromorphone (From DILAUDID) Allergy (Severe, Verified 08/19/25 15:30) DIFFICULTY BREATHING Tobacco use date assessed: 08/19/25 Dental Screening Dental Screen Date: 08/19/25 Did you have a dental visit in the last 12 months?: Yes Did you have a dental problem in the last 6 months where you did not have access to dental care?: No Was dental information given to patient?: Patient has dentist HPI PE HPI Details History of Present Illness The patient is a 55 year old female presenting for a physical exam and to address ongoing lower leg pain. Her primary complaint is a burning, sore pain affecting her entire lower legs. 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 Her past medical history is significant for morbid obesity and bariatric surgery. She has been referred for colon cancer screening in the past but did not complete it. Regarding health maintenance, her mammogram is up to date and scheduled, and she sees a fitness and wellness director for Pap smears. Health Maintenance The patient's mammogram is up to date and she sees a METAL CUT OFF SAW TENDER for Pap smears. She has agreed to undergo colon cancer screening with Cologuard, and the order will be resent. Lab orders were entered. 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 Review of Systems - General: Denies fevers or chills. - Cardiovascular: Denies chest pain. - Respiratory: Denies shortness of breat h. - Gastrointestinal: Denies abdominal lolita n, blood in stool, constipation, or diarrhea. - Musculoskeletal: Reports ongoing, burn ing, sore pain in the entire lower legs. - Psychiatric: Denies suicidal or homici mei ideation. Physical Exam General: Cooperative, morbidly obese, comfortable, no acute distress and well developed, morbidly obese Orientation: Patient oriented x3 Limitations: No limitations Head: Normal to inspection Ears: Hearing grossly normal bilaterally Nose: Normal external nose present Face and sinus: Normal facial exam Eyes: Appearance normal, both eyes and all related structures Neck: Normal visual inspection and Yes full ROM Respiratory: Normal respiratory effort and able to speak in complete sentences. Clear to auscultation bilaterally Cardiovascular: Regular rate and rhythm. Normal S1 and S2 GI: Normal to inspection. Soft to palpation and nontender Skin: No rashes or lesions noted Neuro: Patient oriented x3 Extremities: Normal to inspection, but reports ongoing leg pain, described as burning and sore, affecting the entire lower legs. Results Plan 1. Lower Extremity Pain The patient complains of ongoing, burning, sore pain in her entire lower legs, which is likely related to her morbid obesity and her occupation as a CEMENT FINISHER HELPER. A CPK level will be ordered to further evaluate her symptoms. 2. Morbid Obesity The patient is morbidly obese with a history of bariatric surgery, which is a contributing factor to her leg pain. 3. Encounter for general adult medical e xamination with abnormal findings Z00.01 Discussion Notes I discussed with the patient that her ongoing leg pain is likely multifactorial, related to both her weight and her job as a CEMENT FINISHER HELPER which requires her to be on her feet often. I will order a CPK lab test to further assess for muscle inflammation. We reviewed her health screenings. She confirmed her mammogram is up to date and has agreed to proceed with a Cologuard test for colon cancer screening, for which I will resend the order. Patient Instructions - Please go to the lab to have your bloo d drawn for the tests that were ordered. - You will receive a Cologuard kit to co mplete for your colon cancer screening. - Continue with your plan to get your sc heduled mammogram. [facility] Medical History Inguinal hernia Osteoarthritis of left knee No known health problems Surgical History Gastric bypass status for obesity Tubal ligation status No pertinent past surgical history Family History Paternal Uncle Lung cancer Throat cancer Social History Housing: Apartment Patient Tobacco Use Status: Never used Tobacco e-Cigarette/Vaping Use: Never Used Second Hand Smoke Exposure: No service: No Current occupational status: employed Current occupation: [employer] Current occupational exposures/hazards: Yes Cognitive needs: No Hearing needs: No Vision needs: No Female Reproductive History Menstrual Age of Menarche: 14 Questionnaire PHQ-9 Over the last 2 weeks, how often have you been bothered by any of the following problems? 1. Little interest or pleasure in doing things: not at all 2. Feeling down, depressed, or hopeless: several days 3. Trouble falling or staying asleep, or sleeping too much: several days 4. Feeling tired or having little energy: several days 5. Poor appetite or overeating: several days 6. Feeling bad about yourself - or that you are a failure or have let yourself or your family down: not at all 7. Trouble concentrating on things, such as reading the newspaper or watching television: not at all 8. Moving or speaking so slowly that other people could have noticed. Or the opposite - being so fidgety or restless that you have been moving around a lot more than usual: not at all 9. Thoughts that you would be better off or of hurting yourself in some way: not at all Total score: 4 Depression Screening Interpretation: Negative Depression Screening Done: Yes 31549 - PHQ-9 Billing: Yes Source: Developed by Drs. Poncho Canada, Doretha Almeida, Marco Sosa and colleagues, with an educational maame from [employer]. Thrive Questionnaire Date Thrive assessed: 02/04/24 I am a: Patient What is your living situation today?: I have a steady place to live Within the past 12 months, did the food you bought not last and you didn't have the money to get more?: Never true Within the past 12 months, did you worry whether your food would run out before you got money to buy more?: Never true Do you have trouble paying for medicines?: No Do you have trouble getting transportation to medical appointments?: No Do you have trouble paying your heating and electricity bill?: No Do you have trouble taking care of your child, family member or friend?: No Do you have trouble with day-to-day activities such as bathing, preparing meals, shopping, managing finances, etc.?: No Are you currently unemployed and looking for a job?: No Are you interested in more education?: No Please select the resources that you would like help with: None Currently or been in a relationship where the following occur: No concerns reported THRIVE Score: 0 AUDIT C Alcohol Use Questionnaire (AUDIT-C) 1. How often do you have a drink containing alcohol?: Monthly or less Total Score: 1 YONAS-7 AMB Questionnaire YONAS-7 Date YONAS - 7 assessed: 08/19/25 Feeling nervous, anxious, or on edge: 1 = Several days Not being able to stop or control worryin = Several days Worrying too much about different things: 1 = Several days Trouble relaxin = Several days Being so restless that it is hard to sit still: 1 = Several days Becoming easily annoyed or irritable: 1 = Several days Feeling afraid as if something awful might happen: 1 = Several days Total YONAS-7 score (0-4 normal; 5-9 mild; 10-14 moderate; 15-21 severe): 7 Source: Developed by Drs. Poncho Canada, Doretha Almeida, Marco Sosa and colleagues, with an educational maame from [employer]. YONAS-7 Assessment Billing YONAS-7 Assessment Tool: YONAS-7 Assessment 14987 Physical exam (Primary Care) Vital Signs: Last Vital Signs Pulse 78 08/19/25 15:23 Resp 16 08/19/25 15:23 BP 128/84 08/19/25 15:23 Pulse Ox 100 08/19/25 15:23 Oxygen Delivery Method Room Air 08/19/25 15:23 BMI result Body Mass Index 42.8 Tobacco/Smoking Status: Tobacco use Status Tobacco use date assessed 08/19/25 08/19/25 15:30 Patient Tobacco Use Status Never used Tobacco 08/19/25 15:30 e-Cigarette/Vaping Use Never Used 08/19/25 15:30 PHQ-9: PHQ-9 Score PHQ-9: Total score 4 08/19/25 15:30 Depression Screening Interpretation: Negative Thrive Assessment: Date of Thrive Assessment Date Thrive assessed 02/04/24 08/19/25 15:30 Currently or been in a relationship where the following occur: No concerns reported Coding Level of Care Code Est Pt Level 3 (08235) Est Pt Prev Care 40-64y(95987) Diagnoses Leg pain, bilateral M79.604; M79.605 Encounter for routine adult physical exam with abnormal findings Z00. Additional Codes YONAS-7 Assessment Billing - YONAS-7 Assessment Tool: YONAS-7 Assessment 93864 ([id number]) PHQ-9 - 04922 - PHQ-9 Billing: Yes ([id number]) Assessment & Plan Assessment & Plan (1) Leg pain, bilateral: Code(s): M79.604 - Pain in right leg; M79.605 - Pain in left leg Category: Medical (2) Encounter for routine adult physical exam with abnormal findings: Code(s): Z00.01 - Encounter for general adult medical examination with abnormal findings Category: Medical Plan . Orders: Orders Creatine Kinase Total Today M79.604 - Pain in right leg, M79.605 - Pain in left leg TSH reflex Free T4 Today Z00.01 - Encounter for general adult medical examination with abnormal findings Lipid Panel Today Z00.01 - Encounter for general adult medical examination with abnormal findings Complete Blood Count Auto Diff Today Z00.01 - Encounter for general adult medical examination with abnormal findings Comprehensive Healy. Panel Fast Today Z00.01 - Encounter for general adult medical examination with abnormal findings UA CC w/rflx Micro + Cult Today Z00.01 - Encounter for general adult medical examination with abnormal findings Referrals Cologuard Test Z12.11 - Encounter for screening for malignant neoplasm of colon, Z12.12 - Encounter for screening for malignant neoplasm of rectum
--- OUTSIDE RECORDS SUMMARY | 2025-08-19 15:56 | XMS_ITS | Clinical Summary ---
Author Organization [facility] Address [address] [facility] [address] [place] [phone] Phone Care Team Providers Care Sterile Products Processor Name Role Phone Pcp, Unknown Primary Care [...] Medical Devices Not on file Care Teams Sterile Products Processor Relationship Specialty Start Date End Date Pcp, Unknown PCP - General 05/15/23 Additional Source Comments The information contained in this document represents components of the legal health record. It is not the complete legal health record.[facility]
== END 2025-08-19 15:45 | disposition home or self-care (01) ==
LOC: HO.HMCC 15:14
PROVIDERS: PCP Nurse Practitioner Family; Visit Provider Nurse Practitioner Family
DX: Z00.01 Encounter for general adult medical examination with abnormal findings (principal); E66.01 Morbid (severe) obesity due to excess calories; Z68.41 Body mass index [BMI] 40.0-44.9, adult; M79.604 Pain in right leg; M79.605 Pain in left leg; Z12.11 Encounter for screening for malignant neoplasm of colon; Z98.84 Bariatric surgery status

== ENCOUNTER → 2025-08-19 15:14 | Outpatient (BNVA) | payer OTHER, SELFPAY | PROVIDERS: PCP Nurse Practitioner Family; Visit Provider Nurse Practitioner Family | DX: Z13.31 Encounter for screening for depression (principal); Z13.39 Encounter for screening examination for other mental health and behavioral disorders | CPT/HCPCS: 96127 ==